=== PATIENT | female | born 1930 | race Caucasian/White ===

== ENCOUNTER 2017-10-11 18:52 | Inpatient (IN) | payer MEDICAID, MEDICARE ==
[~2017-10-11] VITALS: Ht 167.6 cm; Wt 45.4 kg
[2017-10-11 18:52] VITALS: BP 195/84
[2017-10-11 19:06] VITALS: BP 176/77
[2017-10-11] MEDS ORDERED: Ketorolac 30mg Inj IV ONE ×2 (19:15→21:45)
--- NOTE | 2017-10-11 19:27 | Emergency Room Report ---
History of Present Illness General Chief Complaint: Abdominal Pain Source: Patient, Family Member (AXEL MOORE M.D.) Present Illness HPI 87YOF Running by and the lens with 2 days of epigastric pain, centered in the epigastric, right upper quadrant and radiating to back. No associated nausea, vomiting, diarrhea or fevers or chills.. Daughter states patient had gallbladder removal previously and also "stones were removed through her mouth" by [facility] physician Denies constipation, urinary complaints (AXEL MOORE M.D.) Allergies: Coded Allergies: HYDROMORPHONE (Unverified Allergy, Unknown, vomitting, 10/11/17) LEVOFLOXACIN (Unverified Allergy, Unknown, Rash, 10/11/17) MEPERIDINE (Unverified Allergy, Unknown, nausea, 10/11/17) MORPHINE (Unverified Allergy, Unknown, nausea rash, 10/11/17) ACETAMINOPHEN (Verified Adverse Reaction, Intermediate, 10/14/17) abdominal irratation HYDROCODONE (Verified Adverse Reaction, Intermediate, 10/14/17) abdominal irratation Patient History Past Surgical History: nereyda Pertinent Family History: none Social History: Denies: smoking, alcohol use, drug use Now: No Immunizations: UTD Reviewed Nursing Documentation: PMH: Agreed, PSxH: Agreed (AXEL MOORE M.D.) Nursing Documentation-PMH Hx Hypertension: Yes Hx Seizures: Yes (AXEL MOORE M.D.) Review of Systems All Other Systems: negative except mentioned in HPI (AXEL MOORE M.D.) Physical Exam Vital Signs Date Time Temp Pulse Resp B/P (MAP) Pulse Ox O2 Delivery O2 Flow Rate FiO2 10/11/17 18:43 98.0 83 18 195/84 98 Room Air 98.1 Sp02 EP Interpretation: reviewed, normal General Appearance: normal inspection, well appearing, no apparent distress, alert, GCS 15, non-toxic Head: normocephalic, atraumatic Eyes: bilateral eye PERRL, bilateral eye EOMI ENT: normal ENT inspection, hearing grossly normal, normal pharynx, no angioedema, normal voice, TMs + canals normal, uvula midline, moist mucus membranes Neck: normal inspection, full range of motion, supple, thyroid normal, no meningismus, no bony tend Respiratory: normal inspection, lungs clear, normal breath sounds, no rhonchi, no respiratory distress, no retraction, no accessory muscle use, no wheezing, speaking full sentences Cardiovascular #1: regular rate, rhythm, no edema, no JVD, normal capillary refill Gastrointestinal: normal inspection, normal bowel sounds, soft, no mass, no peritonitis, non-distended, no guarding, no hernia, no pulsatile mass, other - mild ttp ruq. 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, motor strength/tone normal, cerebellar normal, normal gait, speech normal Psychiatric: normal inspection, judgement/insight normal, mood/affect normal, no suicidal/homicidal ideation, no delusions Skin: normal inspection, normal color, no rash Lymphatic: normal inspection, no adenopathy (AXEL MOORE M.D.) Medical Decision Making Diagnostic Impression: Primary Impression: Abdominal pain Qualified Codes: R10.13 - Epigastric pain Additional Impressions: Intractable abdominal pain Common bile duct dilatation S/P cholecystectomy ER Course 87YOF with abd pain LFTs, bili, ALkPhos normal CT shows CBD 13mm, no stone. S/p nereyda No other acute findings on CT, labs, urine On repeat exam after IV morphine, still c/o abd pain and ttp to epigastric/RUQ 13mm could be normal variant in her age. Unlikely to have obstruction with normal labs Patient's daughter requesting admit for intractable pain - states "I cant take her home like this." I was discussing [id number] dilation with Dr Oneil who agreed to followup with patient if she would be admitted Signout out to Dr Condon to followup admission endorsement at 10pm (AXEL MOORE M.D.) ER Course I received signout from 87-year-old female with epigastric pain. CAT scan showing no acute abnormality except for CBD dilation, could be normal in the setting of patient's age and history of cholecystectomy. Patient's labs are normal, LFTs are normal Vital signs stable appears nontoxic at bedside, currently her pain is controlled Patient will be admitted to [facility] Patient was signed out to Dr Waldron, who has accepted patient for admission. (Cassidy Condon M.D.) EKG Diagnostic Results Rate: normal Rhythm: NSR ST Segments: no acute changes ASA given to the pt in ED: No (AXEL MOORE M.D.) Rhythm Strip Diag. Results EP Interpretation: yes Rate: 64 Rhythm: NSR, no PVC's, no ectopy (AXEL MOORE M.D.) Last Vital Signs Date Time Temp Pulse Resp B/P (MAP) Pulse Ox O2 Delivery O2 Flow Rate FiO2 10/11/17 19:06 97.0 61 25 176/77 100 Room Air 97.0 Status: improved (AXEL MOORE M.D.) Disposition: ADMITTED INPATIENT Condition: Serious AXEL MOORE M.D. Oct 11, 2017 19:27 Cassidy Condon M.D. Oct 11, 2017 22:00
[2017-10-11 19:43] LABS: BASOPHILS % (AUTO) 1.6 % (0.0-2.0); EOSINOPHILS % (AUTO) 1.8 % (0.0-3.0); HEMATOCRIT 38.5 % (37.0-47.0); LYMPHOCYTES % (AUTO) 26.1 % (20.0-45.0); MEAN CORPUSCULAR VOLUME 75 FL (80-99); MONOCYTES % (AUTO) 7.8 % (1.0-10.0); NEUTROPHILS % (AUTO) 62.7 % (45.0-75.0); PLATELET COUNT 300 K/UL (150-450); RED BLOOD COUNT 5.15 M/UL (4.20-5.40); RED CELL DISTRIBUTION WIDTH 14.8 % (11.6-14.8)
[2017-10-11 19:56] LABS: ANION GAP 9 mmol/L (5-15); BLOOD UREA NITROGEN 22 mg/dL (7-18); CALCIUM 10.4 MG/DL (8.5-10.1); CARBON DIOXIDE 29 MMOL/L (21-32); CHLORIDE 99 MMOL/L (98-107); SODIUM 137 MMOL/L (136-145)
[2017-10-11 20:00] LABS: ALANINE AMINOTRANSFERASE 20 U/L (12-78); ALBUMIN 4.1 G/DL (3.4-5.0); ALBUMIN/GLOBULIN RATIO 0.9 (1.0-2.7); ALKALINE PHOSPHATASE 115 U/L (46-116); ASPARTATE AMINO TRANSFERASE 18 U/L (15-37); BILIRUBIN,TOTAL 0.2 MG/DL (0.2-1.0)
[2017-10-11 20:14] LABS: APPEARANCE,URINE CLEAR; BILIRUBIN, URINE NEGATIVE (NEGATIVE); COLOR,URINE PALE YELLOW; GLUCOSE, URINE (UA) NEGATIVE (NEGATIVE); KETONES,URINE NEGATIVE (NEGATIVE); LEUKOCYTE ESTERASE ,URINE 1+ (NEGATIVE); NITRITE,URINE NEGATIVE (NEGATIVE); PH,URINE 7 (4.5-8.0); PROTEIN,URINE NEGATIVE (NEGATIVE); UROBILINOGEN,URINE NORMAL MG/DL (0.0-1.0)
[2017-10-11] MEDS ORDERED: CREON DR 12,001 EACH PO (21:57)
[2017-10-11] MEDS ORDERED: ZOLPIDEM TARTRAT5 MG ORAL (21:57)
[2017-10-11] MEDS ORDERED: CAPTOPRIL25 M1 PO (21:57)
[2017-10-11] MEDS ORDERED: DIOVAN80 MG ORAL (21:57)
[2017-10-11] MEDS ORDERED: BUTALBITAL25 GM MC (21:57)
[2017-10-11 21:59] VITALS: BP 171/86
[2017-10-11] MEDS ORDERED: Nitroglycerin Subl 0.4mg tab SL PRN (22:15)
[2017-10-11] MEDS ORDERED: Miralax 17gm pkt ORAL PRN (22:15)
[2017-10-11] MEDS ORDERED: LORazepam Inj 2mg/ml 1ml IV PRN (22:15)
[2017-10-11] MEDS ORDERED: Mylanta II UD 30ml ORAL PRN (22:15)
[2017-10-11] MEDS: D5 1/2NS 1,000 ML IV SCH (22:46)
[2017-10-11 23:40] VITALS: BP 177/82
[2017-10-12] VITALS: BP 194/82
[2017-10-12 04:00] VITALS: BP 142/90
[2017-10-12] MEDS: Captopril 25mg tab ORAL SCH ×3 (06:05→22:15)
[2017-10-12] MEDS ORDERED: Ketorolac 30mg Inj IV PRN (07:00)
[2017-10-12 07:29] LABS: BASOPHILS % (AUTO) 1.3 % (0.0-2.0); HEMATOCRIT 33.9 % (37.0-47.0); HEMOGLOBIN 10.8 G/DL (12.0-16.0); LYMPHOCYTES % (AUTO) 19.5 % (20.0-45.0); MEAN CORPUSCULAR VOLUME 75 FL (80-99); NEUTROPHILS % (AUTO) 64.2 % (45.0-75.0); PLATELET COUNT 276 K/UL (150-450); RED BLOOD COUNT 4.53 M/UL (4.20-5.40); RED CELL DISTRIBUTION WIDTH 14.4 % (11.6-14.8); WHITE BLOOD COUNT 5.1 K/UL (4.8-10.8)
[2017-10-12 07:52] LABS: ALANINE AMINOTRANSFERASE 11 U/L (12-78); ALBUMIN 3.2 G/DL (3.4-5.0); ALBUMIN/GLOBULIN RATIO 0.8 (1.0-2.7); ALKALINE PHOSPHATASE 88 U/L (46-116); AMYLASE 145 U/L (25-115); ANION GAP 9 mmol/L (5-15); ASPARTATE AMINO TRANSFERASE 20 U/L (15-37); BILIRUBIN,TOTAL 0.2 MG/DL (0.2-1.0); BLOOD UREA NITROGEN 17 mg/dL (7-18); CALCIUM 9.4 MG/DL (8.5-10.1); CARBON DIOXIDE 26 MMOL/L (21-32); CHLORIDE 103 MMOL/L (98-107); CREATININE 0.9 MG/DL (0.55-1.30); POTASSIUM 3.8 MMOL/L (3.5-5.1); SODIUM 137 MMOL/L (136-145)
[2017-10-12 08:15] VITALS: BP 147/69
[2017-10-12] MEDS: Ketorolac 30mg Inj IV PRN (08:42)
--- NOTE | 2017-10-12 10:10 | Diagnostic Imaging Report ---
Clinical Indication: Abdominal pain Technique: No oral contrast utilized, per emergency room physician request IV administration nonionic contrast. Venous phase spiral acquisition obtained through the abdomen and pelvis. Multiplanar reconstructions were generated. Total dose length product 513.75 mGycm. CTDIvol(s) 11.19 mGy. Dose reduction achieved using automated exposure control Comparison: none Findings: There are multiple fat-containing ventral hernias and a small umbilical hernia. There is colonic diverticulosis. No evidence of diverticulitis. Appendix is normal. No small bowel distention. The distal esophagus, stomach, duodenum are unremarkable. There is a small duodenal diverticulum. No free or loculated intraperitoneal air or fluid is demonstrated. The gallbladder is surgically absent. The extrahepatic and central intrahepatic ducts are dilated, and no downstream obstructing lesion is demonstrated. The liver, pancreas, spleen, adrenals, kidneys are unremarkable. No pelvic mass or adenopathy. No retroperitoneal or mesenteric mass or adenopathy. There is focal ectasia of the distal right common femoral artery, which measures 15 mm in diameter, with some mural thrombus. The included lung bases demonstrate posterior dependent atelectatic changes. The bones demonstrate minimal degenerative spondylosis changes. Impression: No acute abnormality Surgically absent gallbladder. Extrahepatic and central intrahepatic biliary ductal dilatation, probably related to prior cholecystectomy and senescent changes Colonic diverticulosis. 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 The CT scanner at [facility] is accredited by the [employer] and the scans are performed using protocols designed to limit radiation exposure to as low as reasonably achievable to attain images of sufficient resolution adequate for diagnostic evaluation.
[2017-10-12] MEDS: Pantoprazole Inj IV SCH (10:17)
[2017-10-12] MEDS: Heparin 5000 units/ml inj SUBQ SCH ×2 (10:19→21:11)
--- NOTE | 2017-10-12 10:37 | Diagnostic Imaging Report ---
Indication: Abdominal pain Technique: Howard-scale and duplex images of the upper abdomen were obtained Comparison: Reference made to CT abdomen and pelvis 10/11/2017 Findings: Gallbladder is surgically absent. Common bile duct measures the mm in diameter. No intrahepatic biliary ductal dilatation. Liver demonstrates normal echogenicity, no focal abnormality. Portal vein and hepatic veins are patent. Pancreas is unremarkable. Spleen is unremarkable. Left kidney measures 8.2 cm in length. Right kidney measures 9.4 cm length. Both kidneys demonstrate normal echogenicity. There is no hydronephrosis. There is a 9 mm cyst in the lower pole of the right kidney. Tiny echogenic focus is seen in the parenchyma of the left kidney . Non-aneurysmal abdominal aorta . Impression: Surgically absent gallbladder Ectatic extrahepatic bile ducts, likely related to age and postcholecystectomy state. Correlate with liver function tests Incidental finding and lower pole renal cyst Echogenic focus in the left renal parenchyma, artifact versus calcification versus tiny angiomyolipoma
--- NOTE | 2017-10-12 11:20 | GI Initial Consult Note ---
Tavarez,Odalys Davi N.P. 10/12/17 1120: History of Present Illness General Date patient seen: Oct 12, 2017 Time patient seen: 11:09 Reason for Hospitalization: Abdominal Pain Referring physician: FUENTES FRANCISCO Reason for Consultation: ABDOMINAL PAIN Present Illness HPI 87YOF Running by and the lens with 2 days of epigastric pain, centered in the epigastric, right upper quadrant and radiating to back. No associated nausea, vomiting, diarrhea or fevers or chills.. Daughter states patient had gallbladder removal previously and also "stones were removed through her mouth" by [facility] physician Denies constipation, urinary complaints GI consulted for abdominal pain. Pt seen on floor, awake A&Ox4 NAD with family members by bedside. At this time, denied any abdominal pain >> soft, nontender. The patients pain is directed more at right flank / lumbar area. Denies any N/V/D. In terms of GI, the patient has history of cholecystectomy with ?multiple ERCP's at [facility] as stated by the patients granddaughter. CT AP shows CBD 15mm dilation, however, the family does not wish do have any endoscopic procedures performed at this this time. She presents today with anemia and elevated amylase. Home Meds Reported Medications Butalbital (BUTALBITAL) 25 Gm Powder, 25 GM MC, GM 10/11/17 Captopril (CAPTOPRIL) 25 Mg Tablet, 25 MG PO, TAB 10/11/17 Zolpidem Tartrate* (ZOLPIDEM TARTRATE*) 5 Mg Tablet, 5 MG ORAL BEDTIME Y for Insomnia, TAB 0 Refills 10/11/17 Valsartan (DIOVAN) 80 Mg Tab, 160 MG ORAL DAILY, TAB 10/11/17 Lipase/Protease/Amylase (VA MARTINEZ 12,000 UNITS CAPSULE) 1 Each Capsule.dr, 1 EACH PO, CAP 10/11/17 Med list reviewed/reconciled: Yes Allergies: Coded Allergies: HYDROMORPHONE (Unverified Allergy, Unknown, vomitting, 10/11/17) LEVOFLOXACIN (Unverified Allergy, Unknown, Rash, 10/11/17) MEPERIDINE (Unverified Allergy, Unknown, nausea, 10/11/17) MORPHINE (Unverified Allergy, Unknown, nausea rash, 10/11/17) Patient History Limited by: age History Provided By: Patient, Family Member, Medical Record PMH Narrative Past Surgical History: nereyda Pertinent Family History: none Social History: Denies: smoking, alcohol use, drug use Now: No Immunizations: UTD Reviewed Nursing Documentation: PMH: Agreed, PSxH: Agreed Hx Hypertension: Yes Hx Seizures: Yes Social History: Denies: smoking, alcohol use, drug use, other Review of Systems All Other Systems: negative except mentioned in HPI Physical Exam Vital Signs Date Time Temp Pulse Resp B/P (MAP) Pulse Ox O2 Delivery O2 Flow Rate FiO2 10/11/17 18:43 98.0 83 18 195/84 98 Room Air 98.1 Sp02 EP Interpretation: reviewed Labs Laboratory Tests Test 10/11/17 19:33 10/12/17 06:27 White Blood Count 6.0 K/UL (4.8-10.8) 5.1 K/UL (4.8-10.8) Red Blood Count 5.15 M/UL (4.20-5.40) 4.53 M/UL (4.20-5.40) Hemoglobin 12.0 G/DL (12.0-16.0) 10.8 G/DL (12.0-16.0) L Hematocrit 38.5 % (37.0-47.0) 33.9 % (37.0-47.0) L Mean Corpuscular Volume 75 FL (80-99) L 75 FL (80-99) L Mean Corpuscular Hemoglobin 23.3 PG (27.0-31.0) L 23.9 PG (27.0-31.0) L Mean Corpuscular Hemoglobin Concent 31.2 G/DL (32.0-36.0) L 31.9 G/DL (32.0-36.0) L Red Cell Distribution Width 14.8 % (11.6-14.8) 14.4 % (11.6-14.8) Platelet Count 300 K/UL (150-450) 276 K/UL (150-450) Mean Platelet Volume 6.0 FL (6.5-10.1) L 5.9 FL (6.5-10.1) L Neutrophils (%) (Auto) 62.7 % (45.0-75.0) 64.2 % (45.0-75.0) Lymphocytes (%) (Auto) 26.1 % (20.0-45.0) 19.5 % (20.0-45.0) L Monocytes (%) (Auto) 7.8 % (1.0-10.0) 9.0 % (1.0-10.0) Eosinophils (%) (Auto) 1.8 % (0.0-3.0) 6.0 % (0.0-3.0) H Basophils (%) (Auto) 1.6 % (0.0-2.0) 1.3 % (0.0-2.0) Urine Color Pale yellow Urine Appearance Clear Urine pH 7 (4.5-8.0) Urine Specific [place] 1.010 (1.005-1.035) Urine Protein Negative (NEGATIVE) Urine Glucose (UA) Negative (NEGATIVE) Urine Ketones Negative (NEGATIVE) Urine Occult Blood 4+ (NEGATIVE) H Urine Nitrite Negative (NEGATIVE) Urine Bilirubin Negative (NEGATIVE) Urine Urobilinogen Normal MG/DL (0.0-1.0) Urine Leukocyte Esterase 1+ (NEGATIVE) H Urine RBC 5-10 /HPF (0 - 2) H Urine WBC 2-4 /HPF (0 - 2) Urine Squamous Epithelial Cells Few /LPF (NONE/OCC) Urine Bacteria Few /HPF (NONE) Sodium Level 137 MMOL/L (136-145) 137 MMOL/L (136-145) Potassium Level 4.0 MMOL/L (3.5-5.1) 3.8 MMOL/L (3.5-5.1) Chloride Level 99 MMOL/L (98-107) 103 MMOL/L (98-107) Carbon Dioxide Level 29 MMOL/L (21-32) 26 MMOL/L (21-32) Anion Gap 9 mmol/L (5-15) 9 mmol/L (5-15) Blood Urea Nitrogen 22 mg/dL (7-18) H 17 mg/dL (7-18) Creatinine 1.0 MG/DL (0.55-1.30) 0.9 MG/DL (0.55-1.30) Estimat Glomerular Filtration Rate mL/min (>60) mL/min (>60) Glucose Level 98 MG/DL (74-106) 91 MG/DL (74-106) Calcium Level 10.4 MG/DL (8.5-10.1) H 9.4 MG/DL (8.5-10.1) Total Bilirubin 0.2 MG/DL (0.2-1.0) 0.2 MG/DL (0.2-1.0) Aspartate Amino Transf (AST/SGOT) 18 U/L (15-37) 20 U/L (15-37) Alanine Aminotransferase (ALT/SGPT) 20 U/L (12-78) 11 U/L (12-78) L Alkaline Phosphatase 115 U/L (46-116) 88 U/L (46-116) Total Protein 8.8 G/DL (6.4-8.2) H 7.0 G/DL (6.4-8.2) Albumin 4.1 G/DL (3.4-5.0) 3.2 G/DL (3.4-5.0) L Globulin 4.7 g/dL 3.8 g/dL Albumin/Globulin Ratio 0.9 (1.0-2.7) L 0.8 (1.0-2.7) L Lipase 373 U/L (73-393) 245 U/L (73-393) Activated Partial Thromboplast Time 26 SEC (23-33) Amylase Level 145 U/L (25-115) H General Appearance: well appearing, no apparent distress, alert, thin Head: normocephalic EENT: normal ENT inspection Neck: supple Respiratory: normal breath sounds, no respiratory distress Cardiovascular: normal rate Gastrointestinal: normal inspection, non tender, soft Neurologic: normal inspection, alert, responsive Psychiatric: normal inspection, judgement/insight normal Skin: normal inspection, normal color, no rash, warm/dry, palpation normal, well hydrated Lymphatic: normal inspection, no adenopathy, axilla node tender (R) Current Medications Current Medications Medications (Trade) Dose Ordered Sig/Matt Route PRN Reason Start Time Stop Time Status Last Admin Dose Admin Acetaminophen (Tylenol) 650 mg Q4H PRN ORAL fever 10/11/17 22:15 11/10/17 22:14 Al Hydroxide/Mg Hydroxide (Mylanta II) 30 ml Q6H PRN ORAL dyspepsia 10/11/17 22:15 11/10/17 22:14 Captopril (Capoten) 25 mg EVERY 8 HOURS ORAL 10/12/17 06:00 11/11/17 05:59 10/12/17 06:05 Clonidine HCl (Catapres Tab) 0.1 mg Q6H PRN ORAL For High Blood Pressure>160 10/12/17 07:00 11/11/17 06:59 Dextrose (Dextrose 50%) STAT PRN IV Hypoglycemia 10/11/17 22:15 11/10/17 22:14 Dextrose/Sodium Chloride 1,000 ml @ 75 mls/hr [id number] IV 10/11/17 22:09 11/10/17 22:08 10/11/17 22:46 Diphenhydramine HCl (Benadryl) 25 mg Q6H PRN ORAL Itching/Pruritis 10/11/17 22:15 11/10/17 22:14 Heparin Sodium (Porcine) (Heparin 5000 units/ml) 5,000 units EVERY 12 HOURS SUBQ 10/12/17 09:00 11/11/17 08:59 10/12/17 10:19 Ketorolac Tromethamine (Toradol 30mg) 15 mg Q6H PRN IV For Pain 10/12/17 13:00 10/17/17 12:59 10/12/17 08:42 Lorazepam (Ativan 2mg/ml 1ml) 1 mg EVERY 4 HOURS PRN IV agitation 10/11/17 22:15 10/18/17 22:14 Nitroglycerin (Ntg) 0.4 mg Q5M X 3 DOSES PRN SL Prn Chest Pain 10/11/17 22:15 11/10/17 22:14 Ondansetron HCl (Zofran) 4 mg Q6H PRN IVP Nausea & Vomiting 10/11/17 22:15 11/10/17 22:14 Pantoprazole (Protonix) 40 mg DAILY IV 10/12/17 09:00 11/11/17 08:59 10/12/17 10:17 Polyethylene Glycol (Miralax) 17 gm HSPRN PRN ORAL Constipation 10/11/17 22:15 11/10/17 22:14 Promethazine HCl (Phenergan) 25 mg EVERY 8 HOURS PRN IV refractory nausea 10/11/17 22:15 11/10/17 22:14 Temazepam (Restoril) 15 mg HSPRN PRN ORAL Insomnia 10/11/17 22:15 10/18/17 22:14 GI: Plan Problems: (1) Right flank pain (2) Back pain (3) Abdominal pain Plan Abdominal U/S reviewed >> - Surgically absent gallbladder - Ectatic extrahepatic bile ducts, likely related to age and postcholecystectomy state. - Incidental finding and lower pole renal cyst CT AP reviewed >> - No acute abnormality - Extrahepatic and central intrahepatic biliary ductal dilatation, probably related to prior cholecystectomy and senescent changes - Colonic diverticulosis. 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 Jauregui. Thank you for this patient referral, we will follow. TAL JAUREGUI 10/12/17 9945: History of Present Illness General Reason for Hospitalization: Abdominal Pain Present Illness Home Meds Reported Medications Butalbital (BUTALBITAL) 25 Gm Powder, 25 GM MC, GM 10/11/17 Captopril (CAPTOPRIL) 25 Mg Tablet, 25 MG PO, TAB 10/11/17 Zolpidem Tartrate* (ZOLPIDEM TARTRATE*) 5 Mg Tablet, 5 MG ORAL BEDTIME Y for Insomnia, TAB 0 Refills 10/11/17 Valsartan (DIOVAN) 80 Mg Tab, 160 MG ORAL DAILY, TAB 10/11/17 Lipase/Protease/Amylase (VA MARTINEZ 12,000 UNITS CAPSULE) 1 Each Capsule., 1 EACH PO, CAP 10/11/17 Allergies: Coded Allergies: HYDROMORPHONE (Unverified Allergy, Unknown, vomitting, 10/11/17) LEVOFLOXACIN (Unverified Allergy, Unknown, Rash, 10/11/17) MEPERIDINE (Unverified Allergy, Unknown, nausea, 10/11/17) MORPHINE (Unverified Allergy, Unknown, nausea rash, 10/11/17) GI: Plan Plan The patient was seen and examined at bedside and all new and available data was reviewed in the patients chart. I agree with the above findings, impression and plan. (Patient seen earlier today. Signature stamp does not reflect patient encounter time.). - MD [facility] Davi Barbour Oct 12, 2017 11:20 TAL JAUREGUI Oct 12, 2017 15:55
[2017-10-12 12:20] VITALS: BP 128/79
--- NOTE | 2017-10-12 13:22 | Consultation ---
History of Present Illness General Date patient seen: Oct 12, 2017 Chief Complaint: Abdominal Pain Referring physician: FUENTES FRANCISCO Reason for Consultation: ABDOMINAL PAIN Present Illness HPI 87 year old female with multiple medical comorbidities as noted below presented with persistent intractable abdominal pain/back pain. As per patient and her family members she has been experiencing pain for some time now. past few days worsening. on admission epigastric but today states it is mainly in her back and somewhat RUQ. no n/v/f/c. has had history of back and abdominal pain for some time now. also has history of biliary tract issues stating that she had cholecystectomy, multiple prior CBD stones requiring ERCP and stone removal, and subsequent pancreatitis as well. CT on admission noted a 13mm large CBD. lft's okay. no biliary obstruction noted on CT. Allergies: Coded Allergies: HYDROMORPHONE (Unverified Allergy, Unknown, vomitting, 10/11/17) LEVOFLOXACIN (Unverified Allergy, Unknown, Rash, 10/11/17) MEPERIDINE (Unverified Allergy, Unknown, nausea, 10/11/17) MORPHINE (Unverified Allergy, Unknown, nausea rash, 10/11/17) Medication History Scheduled Valsartan (Diovan), 160 MG ORAL DAILY, (Reported) Scheduled PRN Zolpidem Tartrate* (Zolpidem Tartrate*), 5 MG ORAL BEDTIME PRN for Insomnia, ( Reported) Miscellaneous Medications Butalbital (Butalbital), 25 GM MC, (Reported) Captopril (Captopril), 25 MG PO, (Reported) Lipase/Protease/Amylase (Creon Dr 12,000 Units Capsule), 1 EACH PO, (Reported) Patient History History Provided By: Patient, Family Member, Medical Record Healthcare decision maker Gabriela Butt(Daughter) [phone] Resuscitation status Full Code Advanced Directive on File Past Medical/Surgical History Past Medical/Surgical History: (1) Back pain (2) Abdominal pain (3) Right flank pain Review of Systems All Other Systems: negative except mentioned in HPI Physical Exam General Appearance: no apparent distress, alert Lines, tubes and drains: peripheral HEENT: mucous membranes moist, PERRL Neck: normal inspection Respiratory/Chest: lungs clear, normal breath sounds, no respiratory distress, no accessory muscle use Cardiovascular/Chest: normal peripheral pulses Abdomen: non tender, soft, no organomegaly, no mass Extremities: normal inspection Skin Exam: normal pigmentation Neurologic: alert, responsive Physical Exam Narrative tender on right side lower ribs. costochondritis Last 24 Hour Vital Signs Date Time Temp Pulse Resp B/P (MAP) Pulse Ox O2 Delivery O2 Flow Rate FiO2 10/12/17 08:15 96.6 53 18 147/69 98 Room Air 96.6 10/12/17 06:05 142/90 10/12/17 04:00 98.3 66 20 142/90 97 Room Air 98.3 10/12/17 00:00 97.3 52 22 194/82 100 97.3 10/11/17 23:41 208.4 58 24 177/82 100 Room Air 208.4 10/11/17 23:40 208.4 58 24 177/82 100 Room Air 208.4 10/11/17 22:41 98.0 10/11/17 21:59 98.0 74 24 171/86 100 Room Air 98.0 10/11/17 21:15 97.0 10/11/17 19:52 97.0 10/11/17 19:06 97.0 61 25 176/77 100 Room Air 97.0 10/11/17 18:52 98.1 85 18 195/84 98 Room Air 98.1 10/11/17 18:43 98.0 83 18 195/84 98 Room Air 98.1 Intake and Output 10/11/17 10/12/17 19:00 07:00 Intake Total 600 ml Balance 600 ml Intake Oral 0 ml IV Total 600 ml # Voids 1 Laboratory Tests Test 10/11/17 19:33 10/12/17 06:27 White Blood Count 6.0 K/UL (4.8-10.8) 5.1 K/UL (4.8-10.8) Red Blood Count 5.15 M/UL (4.20-5.40) 4.53 M/UL (4.20-5.40) Hemoglobin 12.0 G/DL (12.0-16.0) 10.8 G/DL (12.0-16.0) L Hematocrit 38.5 % (37.0-47.0) 33.9 % (37.0-47.0) L Mean Corpuscular Volume 75 FL (80-99) L 75 FL (80-99) L Mean Corpuscular Hemoglobin 23.3 PG (27.0-31.0) L 23.9 PG (27.0-31.0) L Mean Corpuscular Hemoglobin Concent 31.2 G/DL (32.0-36.0) L 31.9 G/DL (32.0-36.0) L Red Cell Distribution Width 14.8 % (11.6-14.8) 14.4 % (11.6-14.8) Platelet Count 300 K/UL (150-450) 276 K/UL (150-450) Mean Platelet Volume 6.0 FL (6.5-10.1) L 5.9 FL (6.5-10.1) L Neutrophils (%) (Auto) 62.7 % (45.0-75.0) 64.2 % (45.0-75.0) Lymphocytes (%) (Auto) 26.1 % (20.0-45.0) 19.5 % (20.0-45.0) L Monocytes (%) (Auto) 7.8 % (1.0-10.0) 9.0 % (1.0-10.0) Eosinophils (%) (Auto) 1.8 % (0.0-3.0) 6.0 % (0.0-3.0) H Basophils (%) (Auto) 1.6 % (0.0-2.0) 1.3 % (0.0-2.0) Urine Color Pale yellow Urine Appearance Clear Urine pH 7 (4.5-8.0) Urine Specific [place] 1.010 (1.005-1.035) Urine Protein Negative (NEGATIVE) Urine Glucose (UA) Negative (NEGATIVE) Urine Ketones Negative (NEGATIVE) Urine Occult Blood 4+ (NEGATIVE) H Urine Nitrite Negative (NEGATIVE) Urine Bilirubin Negative (NEGATIVE) Urine Urobilinogen Normal MG/DL (0.0-1.0) Urine Leukocyte Esterase 1+ (NEGATIVE) H Urine RBC 5-10 /HPF (0 - 2) H Urine WBC 2-4 /HPF (0 - 2) Urine Squamous Epithelial Cells Few /LPF (NONE/OCC) Urine Bacteria Few /HPF (NONE) Sodium Level 137 MMOL/L (136-145) 137 MMOL/L (136-145) Potassium Level 4.0 MMOL/L (3.5-5.1) 3.8 MMOL/L (3.5-5.1) Chloride Level 99 MMOL/L (98-107) 103 MMOL/L (98-107) Carbon Dioxide Level 29 MMOL/L (21-32) 26 MMOL/L (21-32) Anion Gap 9 mmol/L (5-15) 9 mmol/L (5-15) Blood Urea Nitrogen 22 mg/dL (7-18) H 17 mg/dL (7-18) Creatinine 1.0 MG/DL (0.55-1.30) 0.9 MG/DL (0.55-1.30) Estimat Glomerular Filtration Rate mL/min (>60) mL/min (>60) Glucose Level 98 MG/DL (74-106) 91 MG/DL (74-106) Calcium Level 10.4 MG/DL (8.5-10.1) H 9.4 MG/DL (8.5-10.1) Total Bilirubin 0.2 MG/DL (0.2-1.0) 0.2 MG/DL (0.2-1.0) Aspartate Amino Transf (AST/SGOT) 18 U/L (15-37) 20 U/L (15-37) Alanine Aminotransferase (ALT/SGPT) 20 U/L (12-78) 11 U/L (12-78) L Alkaline Phosphatase 115 U/L (46-116) 88 U/L (46-116) Total Protein 8.8 G/DL (6.4-8.2) H 7.0 G/DL (6.4-8.2) Albumin 4.1 G/DL (3.4-5.0) 3.2 G/DL (3.4-5.0) L Globulin 4.7 g/dL 3.8 g/dL Albumin/Globulin Ratio 0.9 (1.0-2.7) L 0.8 (1.0-2.7) L Lipase 373 U/L (73-393) 245 U/L (73-393) Activated Partial Thromboplast Time 26 SEC (23-33) Amylase Level 145 U/L (25-115) H Height (Feet): 5 Height (Inches): 6.00 Weight (Pounds): 100 Medications Current Medications Medications (Trade) Dose Ordered Sig/Matt Route PRN Reason Start Time Stop Time Status Last Admin Dose Admin Acetaminophen (Tylenol) 650 mg Q4H PRN ORAL fever 10/11/17 22:15 11/10/17 22:14 Al Hydroxide/Mg Hydroxide (Mylanta II) 30 ml Q6H PRN ORAL dyspepsia 10/11/17 22:15 11/10/17 22:14 Captopril (Capoten) 25 mg EVERY 8 HOURS ORAL 10/12/17 06:00 11/11/17 05:59 10/12/17 06:05 Clonidine HCl (Catapres Tab) 0.1 mg Q6H PRN ORAL For High Blood Pressure>160 10/12/17 07:00 11/11/17 06:59 Dextrose (Dextrose 50%) STAT PRN IV Hypoglycemia 10/11/17 22:15 11/10/17 22:14 Dextrose/Sodium Chloride 1,000 ml @ 75 mls/hr [id number] IV 10/11/17 22:09 11/10/17 22:08 10/11/17 22:46 Diphenhydramine HCl (Benadryl) 25 mg Q6H PRN ORAL Itching/Pruritis 10/11/17 22:15 11/10/17 22:14 Heparin Sodium (Porcine) (Heparin 5000 units/ml) 5,000 units EVERY 12 HOURS SUBQ 10/12/17 09:00 11/11/17 08:59 10/12/17 10:19 Ketorolac Tromethamine (Toradol 30mg) 15 mg Q6H PRN IV For Pain 10/12/17 13:00 10/17/17 12:59 10/12/17 08:42 Lorazepam (Ativan 2mg/ml 1ml) 1 mg EVERY 4 HOURS PRN IV agitation 10/11/17 22:15 10/18/17 22:14 Nitroglycerin (Ntg) 0.4 mg Q5M X 3 DOSES PRN SL Prn Chest Pain 10/11/17 22:15 11/10/17 22:14 Ondansetron HCl (Zofran) 4 mg Q6H PRN IVP Nausea & Vomiting 10/11/17 22:15 11/10/17 22:14 Pantoprazole (Protonix) 40 mg DAILY IV 10/12/17 09:00 11/11/17 08:59 10/12/17 10:17 Polyethylene Glycol (Miralax) 17 gm HSPRN PRN ORAL Constipation 10/11/17 22:15 11/10/17 22:14 Promethazine HCl (Phenergan) 25 mg EVERY 8 HOURS PRN IV refractory nausea 10/11/17 22:15 11/10/17 22:14 Temazepam (Restoril) 15 mg HSPRN PRN ORAL Insomnia 10/11/17 22:15 10/18/17 22:14 Assessment/Plan Problem List: (1) Abdominal pain Assessment & Plan: abdominal pain. back pain. RUQ pain. epigastric pain. not consistent and changes. CT with dilated biliary tract. history of biliary stones requiring ERCP? on exam can illicit pain on right lower ribs anteriorly resembling costochondritis -given history would recommend MRCP to ensure no biliary stricture or stones that are being missed on CT/US -pain management -trend labs. will follow with recs. thank you for this consultation. ICD Codes: R10.9 - Unspecified abdominal pain SNOMED: 48786810 Qualifiers: Qualified Codes: R10.13 - Epigastric pain Status: stable AsifHugh bartlett Oct 12, 2017 13:22
[2017-10-12] MEDS: D5 1/2NS 1,000 ML IV SCH (14:04)
[2017-10-12 16:04] VITALS: BP 152/75
--- NOTE | 2017-10-12 16:11 | History and Physical ---
History of Present Illness General Date patient seen: Oct 12, 2017 Reason for Hospitalization: Abdominal Pain Present Illness HPI 87 year old female with hx of cholecystectomy and gallstone pancreatitis last year presented with with 2 days of epigastric pain, centered in the epigastric , right upper quadrant and radiating to back. No associated nausea, vomiting, diarrhea or fevers or chills. Denies constipation, diarrhea etc. Pt is admitted for intractable abdominal pain. Allergies: Coded Allergies: HYDROMORPHONE (Unverified Allergy, Unknown, vomitting, 10/11/17) LEVOFLOXACIN (Unverified Allergy, Unknown, Rash, 10/11/17) MEPERIDINE (Unverified Allergy, Unknown, nausea, 10/11/17) MORPHINE (Unverified Allergy, Unknown, nausea rash, 10/11/17) Medication History Scheduled Valsartan (Diovan), 160 MG ORAL DAILY, (Reported) Scheduled PRN Zolpidem Tartrate* (Zolpidem Tartrate*), 5 MG ORAL BEDTIME PRN for Insomnia, ( Reported) Miscellaneous Medications Butalbital (Butalbital), 25 GM MC, (Reported) Captopril (Captopril), 25 MG PO, (Reported) Lipase/Protease/Amylase (Creon Dr 12,000 Units Capsule), 1 EACH PO, (Reported) Patient History Healthcare decision maker Gabriela Butt(Daughter) [phone] Resuscitation status Full Code Advanced Directive on File Past Medical/Surgical History Past Medical/Surgical History: (1) History of cholecystectomy (2) Pancreatitis Review of Systems All Other Systems: negative except mentioned in HPI Physical Exam General Appearance: WD/WN, no apparent distress, lethargic Lines, tubes and drains: peripheral HEENT: normocephalic, anicteric Neck: non-tender, normal alignment, supple, normal inspection, abnormal alignment Respiratory/Chest: chest wall non-tender, lungs clear, no respiratory distress Cardiovascular/Chest: normal peripheral pulses, normal rate, regular rhythm Abdomen: normal bowel sounds, non tender, abnormal bowel sounds, hyperactive bowel sounds Genitourinary/Rectal: normal genital exam Extremities: normal range of motion, non-tender, normal inspection Skin Exam: normal pigmentation Neurologic: hot box spotter II-XII grossly normal Lymphatic: anterior cervical, posterior cervical (L) Last 24 Hour Vital Signs Date Time Temp Pulse Resp B/P (MAP) Pulse Ox O2 Delivery O2 Flow Rate FiO2 10/12/17 14:03 128/79 10/12/17 12:20 98.0 60 17 128/79 95 Room Air 98.0 10/12/17 08:15 96.6 53 18 147/69 98 Room Air 96.6 10/12/17 06:05 142/90 10/12/17 04:00 98.3 66 20 142/90 97 Room Air 98.3 10/12/17 00:00 97.3 52 22 194/82 100 97.3 10/11/17 23:41 208.4 58 24 177/82 100 Room Air 208.4 10/11/17 23:40 208.4 58 24 177/82 100 Room Air 208.4 10/11/17 22:41 98.0 10/11/17 21:59 98.0 74 24 171/86 100 Room Air 98.0 10/11/17 21:15 97.0 10/11/17 19:52 97.0 10/11/17 19:06 97.0 61 25 176/77 100 Room Air 97.0 10/11/17 18:52 98.1 85 18 195/84 98 Room Air 98.1 10/11/17 18:43 98.0 83 18 195/84 98 Room Air 98.1 Intake and Output 10/11/17 10/12/17 19:00 07:00 Intake Total 600 ml Balance 600 ml Intake Oral 0 ml IV Total 600 ml # Voids 1 Laboratory Tests Test 10/11/17 19:33 10/12/17 06:27 White Blood Count 6.0 K/UL (4.8-10.8) 5.1 K/UL (4.8-10.8) Red Blood Count 5.15 M/UL (4.20-5.40) 4.53 M/UL (4.20-5.40) Hemoglobin 12.0 G/DL (12.0-16.0) 10.8 G/DL (12.0-16.0) L Hematocrit 38.5 % (37.0-47.0) 33.9 % (37.0-47.0) L Mean Corpuscular Volume 75 FL (80-99) L 75 FL (80-99) L Mean Corpuscular Hemoglobin 23.3 PG (27.0-31.0) L 23.9 PG (27.0-31.0) L Mean Corpuscular Hemoglobin Concent 31.2 G/DL (32.0-36.0) L 31.9 G/DL (32.0-36.0) L Red Cell Distribution Width 14.8 % (11.6-14.8) 14.4 % (11.6-14.8) Platelet Count 300 K/UL (150-450) 276 K/UL (150-450) Mean Platelet Volume 6.0 FL (6.5-10.1) L 5.9 FL (6.5-10.1) L Neutrophils (%) (Auto) 62.7 % (45.0-75.0) 64.2 % (45.0-75.0) Lymphocytes (%) (Auto) 26.1 % (20.0-45.0) 19.5 % (20.0-45.0) L Monocytes (%) (Auto) 7.8 % (1.0-10.0) 9.0 % (1.0-10.0) Eosinophils (%) (Auto) 1.8 % (0.0-3.0) 6.0 % (0.0-3.0) H Basophils (%) (Auto) 1.6 % (0.0-2.0) 1.3 % (0.0-2.0) Urine Color Pale yellow Urine Appearance Clear Urine pH 7 (4.5-8.0) Urine Specific [place] 1.010 (1.005-1.035) Urine Protein Negative (NEGATIVE) Urine Glucose (UA) Negative (NEGATIVE) Urine Ketones Negative (NEGATIVE) Urine Occult Blood 4+ (NEGATIVE) H Urine Nitrite Negative (NEGATIVE) Urine Bilirubin Negative (NEGATIVE) Urine Urobilinogen Normal MG/DL (0.0-1.0) Urine Leukocyte Esterase 1+ (NEGATIVE) H Urine RBC 5-10 /HPF (0 - 2) H Urine WBC 2-4 /HPF (0 - 2) Urine Squamous Epithelial Cells Few /LPF (NONE/OCC) Urine Bacteria Few /HPF (NONE) Sodium Level 137 MMOL/L (136-145) 137 MMOL/L (136-145) Potassium Level 4.0 MMOL/L (3.5-5.1) 3.8 MMOL/L (3.5-5.1) Chloride Level 99 MMOL/L (98-107) 103 MMOL/L (98-107) Carbon Dioxide Level 29 MMOL/L (21-32) 26 MMOL/L (21-32) Anion Gap 9 mmol/L (5-15) 9 mmol/L (5-15) Blood Urea Nitrogen 22 mg/dL (7-18) H 17 mg/dL (7-18) Creatinine 1.0 MG/DL (0.55-1.30) 0.9 MG/DL (0.55-1.30) Estimat Glomerular Filtration Rate mL/min (>60) mL/min (>60) Glucose Level 98 MG/DL (74-106) 91 MG/DL (74-106) Calcium Level 10.4 MG/DL (8.5-10.1) H 9.4 MG/DL (8.5-10.1) Total Bilirubin 0.2 MG/DL (0.2-1.0) 0.2 MG/DL (0.2-1.0) Aspartate Amino Transf (AST/SGOT) 18 U/L (15-37) 20 U/L (15-37) Alanine Aminotransferase (ALT/SGPT) 20 U/L (12-78) 11 U/L (12-78) L Alkaline Phosphatase 115 U/L (46-116) 88 U/L (46-116) Total Protein 8.8 G/DL (6.4-8.2) H 7.0 G/DL (6.4-8.2) Albumin 4.1 G/DL (3.4-5.0) 3.2 G/DL (3.4-5.0) L Globulin 4.7 g/dL 3.8 g/dL Albumin/Globulin Ratio 0.9 (1.0-2.7) L 0.8 (1.0-2.7) L Lipase 373 U/L (73-393) 245 U/L (73-393) Activated Partial Thromboplast Time 26 SEC (23-33) Amylase Level 145 U/L (25-115) H Height (Feet): 5 Height (Inches): 6.00 Weight (Pounds): 100 Medications Current Medications Medications (Trade) Dose Ordered Sig/Matt Route PRN Reason Start Time Stop Time Status Last Admin Dose Admin Acetaminophen (Tylenol) 650 mg Q4H PRN ORAL fever 10/11/17 22:15 11/10/17 22:14 Al Hydroxide/Mg Hydroxide (Mylanta II) 30 ml Q6H PRN ORAL dyspepsia 10/11/17 22:15 11/10/17 22:14 Captopril (Capoten) 25 mg EVERY 8 HOURS ORAL 10/12/17 06:00 11/11/17 05:59 10/12/17 14:03 Clonidine HCl (Catapres Tab) 0.1 mg Q6H PRN ORAL For High Blood Pressure>160 10/12/17 07:00 11/11/17 06:59 Dextrose (Dextrose 50%) STAT PRN IV Hypoglycemia 10/11/17 22:15 11/10/17 22:14 Dextrose/Sodium Chloride 1,000 ml @ 75 mls/hr [id number] IV 10/11/17 22:09 11/10/17 22:08 10/12/17 14:04 Diphenhydramine HCl (Benadryl) 25 mg Q6H PRN ORAL Itching/Pruritis 10/11/17 22:15 11/10/17 22:14 Heparin Sodium (Porcine) (Heparin 5000 units/ml) 5,000 units EVERY 12 HOURS SUBQ 10/12/17 09:00 11/11/17 08:59 10/12/17 10:19 Ketorolac Tromethamine (Toradol 30mg) 15 mg Q6H PRN IV For Pain 10/12/17 13:00 10/17/17 12:59 10/12/17 08:42 Lorazepam (Ativan 2mg/ml 1ml) 1 mg EVERY 4 HOURS PRN IV agitation 10/11/17 22:15 10/18/17 22:14 Nitroglycerin (Ntg) 0.4 mg Q5M X 3 DOSES PRN SL Prn Chest Pain 10/11/17 22:15 11/10/17 22:14 Ondansetron HCl (Zofran) 4 mg Q6H PRN IVP Nausea & Vomiting 10/11/17 22:15 11/10/17 22:14 Pantoprazole (Protonix) 40 mg DAILY IV 10/12/17 09:00 11/11/17 08:59 10/12/17 10:17 Polyethylene Glycol (Miralax) 17 gm HSPRN PRN ORAL Constipation 10/11/17 22:15 11/10/17 22:14 Promethazine HCl (Phenergan) 25 mg EVERY 8 HOURS PRN IV refractory nausea 10/11/17 22:15 11/10/17 22:14 Temazepam (Restoril) 15 mg HSPRN PRN ORAL Insomnia 10/11/17 22:15 10/18/17 22:14 Assessment/Plan Problem List: (1) Intractable abdominal pain ICD Codes: R10.9 - Unspecified abdominal pain SNOMED: 99361113, 044659790 (2) History of cholecystectomy ICD Codes: Z98.890 - Other specified postprocedural states; Z90.49 - Acquired absence of other specified parts of digestive tract SNOMED: 15101822, 947956628 (3) Pancreatitis ICD Codes: K85.90 - Acute pancreatitis without necrosis or infection, unspecified SNOMED: 69712010 Assessment/Plan NPO iv fluids [facility] records GI and surgery evaluation incidental finding of femoral thormbosis, Vascular called. FUENTES FLORES Oct 12, 2017 16:11
--- NOTE | 2017-10-12 16:54 | Diagnostic Imaging Report ---
Indication: Abdominal pain Technique: Coronal and axial single shot fast spin-echo breath-hold, axial T2 FRFSE, 2-D thick slab MRCP, AXIAL 2-D FIESTA fat saturated, axial 3-D dual echo breath-hold, water weighted axial LAVA FLEX, revealed 3-D MRCP images were obtained of the abdomen. MIP reconstructions were generated of the bile ducts Comparison: Reference made to ultrasound of earlier the same day, CT abdomen and pelvis 10/11/2017 Findings: As previously demonstrated and reported, the gallbladder is surgically absent. There is dilatation of the extrahepatic and central intrahepatic bile ducts, cystic duct stump, common bile duct and common hepatic duct measuring up to 15 mm in diameter. There is tapering to normal caliber at the level of the ampulla, and no intraluminal filling defects or surrounding mass demonstrated. The pancreatic duct is minimally ectatic. The liver, pancreas, spleen, adrenals, kidneys are all unremarkable. Colonic diverticulosis described on recent CT scan is better visualized on that study. There is minimal posterior dependent atelectatic change in the lungs. Impression: Extrahepatic and central intrahepatic biliary ductal dilatation, as described. Most likely on the basis of senescent and postcholecystectomy changes. No definite downstream obstructing lesion. However, occult obstructing lesion at the level of the ampulla cannot be completely excluded, particularly given the degree of ductal dilatation, and correlation with liver function tests is recommended. No other acute or significant abnormality demonstrated.
[2017-10-12 20:00] VITALS: BP 147/66
[2017-10-13] VITALS: BP 182/90
[2017-10-13] MEDS: D5 1/2NS 1,000 ML IV SCH ×2 (00:43→15:18)
[2017-10-13] MEDS: Ketorolac 30mg Inj IV PRN ×3 (00:44→18:51)
[2017-10-13 04:00] VITALS: BP 123/72
[2017-10-13] MEDS: Captopril 25mg tab ORAL SCH ×3 (06:02→21:11)
[2017-10-13 06:35] LABS: HEMATOCRIT 32.8 % (37.0-47.0); HEMOGLOBIN 10.6 G/DL (12.0-16.0); MEAN CORPUSCULAR VOLUME 75 FL (80-99); PLATELET COUNT 262 K/UL (150-450); RED BLOOD COUNT 4.39 M/UL (4.20-5.40); RED CELL DISTRIBUTION WIDTH 14.7 % (11.6-14.8); WHITE BLOOD COUNT 8.6 K/UL (4.8-10.8)
[2017-10-13 06:58] LABS: AMYLASE 125 U/L (25-115)
[2017-10-13 07:32] LABS: ANION GAP 10 mmol/L (5-15); BLOOD UREA NITROGEN 15 mg/dL (7-18); CALCIUM 8.9 MG/DL (8.5-10.1); CARBON DIOXIDE 23 MMOL/L (21-32); CHLORIDE 102 MMOL/L (98-107); FERRITIN 37 NG/ML (8-388); POTASSIUM 3.4 MMOL/L (3.5-5.1); SODIUM 135 MMOL/L (136-145)
[2017-10-13 07:55] LABS: % IRON SATURATION 63 % (15-50); IRON 196 ug/dL (50-175); TOTAL IRON BINDING CAPACITY 309 ug/dL (250-450)
[2017-10-13] MEDS: Heparin 5000 units/ml inj SUBQ SCH ×2 (08:53→21:10)
--- NOTE | 2017-10-13 10:23 | GI Progress Note ---
Assessment/Plan Problems: (1) Right flank pain ICD Codes: R10.9 - Unspecified abdominal pain SNOMED: 248749402 (2) Pancreatitis ICD Codes: K85.90 - Acute pancreatitis without necrosis or infection, unspecified SNOMED: 02354936 (3) Intractable abdominal pain ICD Codes: R10.9 - Unspecified abdominal pain SNOMED: 99134876, 608148728 (4) Back pain ICD Codes: M54.9 - Dorsalgia, unspecified SNOMED: 901754646 (5) History of cholecystectomy ICD Codes: Z98.890 - Other specified postprocedural states; Z90.49 - Acquired absence of other specified parts of digestive tract SNOMED: 96576086, 931207301 Status: unchanged Status Narrative Discussed with Dr. Escoto. Assessment/Plan Abdominal U/S reviewed >> - Surgically absent gallbladder - Ectatic extrahepatic bile ducts, likely related to age and postcholecystectomy state. - Incidental finding and lower pole renal cyst CT AP reviewed >> - No acute abnormality - Extrahepatic and central intrahepatic biliary ductal dilatation, probably related to prior cholecystectomy and senescent changes - Colonic diverticulosis. 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 iron elevation folate deficiency ERCP refused by family members >> performed at [facility] in 2011 symptomatic treatment pain mgmt anemia work up OB stool r/o GI bleed monitor H&H, prn transfusions bowel regime folate ppi fu labs The patient was seen and examined at bedside and all new and available data was reviewed in the patients chart. I agree with the above findings, impression and plan. (Patient seen earlier today. Signature stamp does not reflect patient encounter time.). - Angelina Escoto MD Subjective Subjective no abdominal pain right flank pain present Objective Last 24 Hour Vital Signs Date Time Temp Pulse Resp B/P (MAP) Pulse Ox O2 Delivery O2 Flow Rate FiO2 10/13/17 06:02 123/72 10/13/17 04:00 99.4 81 20 123/72 96 Room Air 99.4 10/13/17 00:55 182/90 10/13/17 00:00 98.9 69 20 182/90 98 Room Air 98.9 10/12/17 22:15 145/68 10/12/17 20:00 97.8 56 20 147/66 98 Room Air 97.8 10/12/17 16:04 97.7 53 21 152/75 99 Room Air 97.7 10/12/17 14:03 128/79 10/12/17 12:20 98.0 60 17 128/79 95 Room Air 98.0 Intake and Output 10/12/17 10/13/17 19:00 07:00 Intake Total 690 ml 825 ml Balance 690 ml 825 ml Intake Oral 240 ml IV Total 450 ml 825 ml # Voids 3 2 Laboratory Tests Test 10/13/17 05:40 White Blood Count 8.6 K/UL (4.8-10.8) # Red Blood Count 4.39 M/UL (4.20-5.40) Hemoglobin 10.6 G/DL (12.0-16.0) L Hematocrit 32.8 % (37.0-47.0) L Mean Corpuscular Volume 75 FL (80-99) L Mean Corpuscular Hemoglobin 24.0 PG (27.0-31.0) L Mean Corpuscular Hemoglobin Concent 32.2 G/DL (32.0-36.0) Red Cell Distribution Width 14.7 % (11.6-14.8) Platelet Count 262 K/UL (150-450) Mean Platelet Volume 6.2 FL (6.5-10.1) L Neutrophils (%) (Auto) % (45.0-75.0) Lymphocytes (%) (Auto) % (20.0-45.0) Monocytes (%) (Auto) % (1.0-10.0) Eosinophils (%) (Auto) % (0.0-3.0) Basophils (%) (Auto) % (0.0-2.0) Reticulocyte Count 0.9 % (0.0-2.0) Prothrombin Time 10.6 SEC (9.30-11.50) Prothromb Time International Ratio 1.0 (0.9-1.1) Activated Partial Thromboplast Time 31 SEC (23-33) Sodium Level 135 MMOL/L (136-145) L Potassium Level 3.4 MMOL/L (3.5-5.1) L Chloride Level 102 MMOL/L (98-107) Carbon Dioxide Level 23 MMOL/L (21-32) Anion Gap 10 mmol/L (5-15) Blood Urea Nitrogen 15 mg/dL (7-18) Creatinine 1.0 MG/DL (0.55-1.30) Estimat Glomerular Filtration Rate mL/min (>60) Glucose Level 131 MG/DL (74-106) H Calcium Level 8.9 MG/DL (8.5-10.1) Iron Level 196 ug/dL (50-175) H Total Iron Binding Capacity 309 ug/dL (250-450) Percent Iron Saturation 63 % (15-50) H Unsaturated Iron Binding 113 ug/dL (112-346) Ferritin 37 NG/ML (8-388) Amylase Level 125 U/L (25-115) H Lipase 207 U/L (73-393) Vitamin B12 Level 303 PG/ML (193-986) Folate 7.2 NG/ML (8.6-58.9) L Thyroid Stimulating Hormone (TSH) 2.440 uiU/mL (0.358-3.740) Free Thyroxine 0.64 NG/DL (0.76-1.46) L Height (Feet): 5 Height (Inches): 6.00 Weight (Pounds): 100 General Appearance: WD/WN, no apparent distress, alert Cardiovascular: normal rate Respiratory/Chest: normal breath sounds, no respiratory distress Abdominal Exam: normal bowel sounds, non tender, soft Extremities: non-tender Odalys Tavarez N.P. Oct 13, 2017 10:23 TAL ESCOTO Oct 18, 2017 12:21
[2017-10-13] MEDS: Pantoprazole Inj IV SCH (10:30)
[2017-10-13 12:00] VITALS: BP 124/70
--- NOTE | 2017-10-13 15:02 | Pulmonology Progress Note ---
Assessment/Plan Problems: (1) Intractable abdominal pain (2) History of cholecystectomy (3) Pancreatitis Assessment/Plan met with daughter, ( an ER nurse) who stated that they don't want any ERCP they want pain control and possibly injections in her spine for pain, considering multiple allergies she has called Dr Ellis for pain management. Impression: Extrahepatic and central intrahepatic biliary ductal dilatation, as described. Most likely on the basis of senescent and postcholecystectomy changes. No definite downstream obstructing lesion. However, occult obstructing lesion at the level of the ampulla cannot be completely excluded, particularly given the degree of ductal dilatation, and correlation with liver function tests is recommended. Subjective ROS Limited/Unobtainable: No Interval Events: c/p back pain, Allergies: Coded Allergies: HYDROMORPHONE (Unverified Allergy, Unknown, vomitting, 10/11/17) LEVOFLOXACIN (Unverified Allergy, Unknown, Rash, 10/11/17) MEPERIDINE (Unverified Allergy, Unknown, nausea, 10/11/17) MORPHINE (Unverified Allergy, Unknown, nausea rash, 10/11/17) Objective Last 24 Hour Vital Signs Date Time Temp Pulse Resp B/P (MAP) Pulse Ox O2 Delivery O2 Flow Rate FiO2 10/13/17 12:00 98.0 81 18 124/70 96 98.0 10/13/17 11:23 99.4 10/13/17 10:31 99.4 10/13/17 06:02 123/72 10/13/17 04:00 99.4 81 20 123/72 96 Room Air 99.4 10/13/17 00:55 182/90 10/13/17 00:00 98.9 69 20 182/90 98 Room Air 98.9 10/12/17 22:15 145/68 10/12/17 20:00 97.8 56 20 147/66 98 Room Air 97.8 10/12/17 16:04 97.7 53 21 152/75 99 Room Air 97.7 Intake and Output 10/12/17 10/13/17 19:00 07:00 Intake Total 690 ml 825 ml Balance 690 ml 825 ml Intake Oral 240 ml IV Total 450 ml 825 ml # Voids 3 2 General Appearance: cachetic Respiratory/Chest: chest wall non-tender, lungs clear Cardiovascular: normal peripheral pulses, normal rate Abdomen: normal bowel sounds, soft, non tender Genitourinary: normal external genitalia Extremities: no cyanosis 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, no motor/sensory deficits, normal mood/affect Lymphatic: no neck adenopathy Laboratory Tests 10/13/17 05:40: White Blood Count 8.6#, Red Blood Count 4.39, Hemoglobin 10.6L, Hematocrit 32.8L , Mean Corpuscular Volume 75L, Mean Corpuscular Hemoglobin 24.0L, Mean Corpuscular Hemoglobin Concent 32.2, Red Cell Distribution Width 14.7, Platelet Count 262, Mean Platelet Volume 6.2L, Neutrophils (%) (Auto) , Lymphocytes (%) ( Auto) , Monocytes (%) (Auto) , Eosinophils (%) (Auto) , Basophils (%) (Auto) , Reticulocyte Count 0.9, Prothrombin Time 10.6, Prothromb Time International Ratio 1.0, Activated Partial Thromboplast Time 31, Sodium Level 135L, Potassium Level 3.4L, Chloride Level 102, Carbon Dioxide Level 23, Anion Gap 10, Blood Urea Nitrogen 15, Creatinine 1.0, Estimat Glomerular Filtration Rate , Glucose Level 131H, Calcium Level 8.9, Iron Level 196H, Total Iron Binding Capacity 309 , Percent Iron Saturation 63H, Unsaturated Iron Binding 113, Ferritin 37, Amylase Level 125H, Lipase 207, Vitamin B12 Level 303, Folate 7.2L, Thyroid Stimulating Hormone (TSH) 2.440, Free Thyroxine 0.64L Current Medications Medications (Trade) Dose Ordered Sig/Matt Route PRN Reason Start Time Stop Time Status Last Admin Dose Admin Acetaminophen (Tylenol) 650 mg Q4H PRN ORAL fever 10/11/17 22:15 11/10/17 22:14 Al Hydroxide/Mg Hydroxide (Mylanta II) 30 ml Q6H PRN ORAL dyspepsia 10/11/17 22:15 11/10/17 22:14 Captopril (Capoten) 25 mg EVERY 8 HOURS ORAL 10/12/17 06:00 11/11/17 05:59 10/13/17 06:02 Clonidine HCl (Catapres Tab) 0.1 mg Q6H PRN ORAL For High Blood Pressure>160 10/12/17 07:00 11/11/17 06:59 10/13/17 00:55 Dextrose (Dextrose 50%) STAT PRN IV Hypoglycemia 10/11/17 22:15 11/10/17 22:14 Dextrose/Sodium Chloride 1,000 ml @ 75 mls/hr [id number] IV 10/11/17 22:09 11/10/17 22:08 10/13/17 00:43 Diphenhydramine HCl (Benadryl) 25 mg Q6H PRN ORAL Itching/Pruritis 10/11/17 22:15 11/10/17 22:14 Folic Acid (Folate) 1 mg DAILY ORAL 10/14/17 09:00 11/13/17 08:59 Heparin Sodium (Porcine) (Heparin 5000 units/ml) 5,000 units EVERY 12 HOURS SUBQ 10/12/17 09:00 11/11/17 08:59 10/13/17 08:53 Ketorolac Tromethamine (Toradol 30mg) 15 mg Q6H PRN IV For Pain 10/12/17 13:00 10/17/17 12:59 10/13/17 10:31 Lorazepam (Ativan 2mg/ml 1ml) 1 mg EVERY 4 HOURS PRN IV agitation 10/11/17 22:15 10/18/17 22:14 Nitroglycerin (Ntg) 0.4 mg Q5M X 3 DOSES PRN SL Prn Chest Pain 10/11/17 22:15 11/10/17 22:14 Ondansetron HCl (Zofran) 4 mg Q6H PRN IVP Nausea & Vomiting 10/11/17 22:15 11/10/17 22:14 Pantoprazole (Protonix) 40 mg DAILY IV 10/12/17 09:00 11/11/17 08:59 10/13/17 10:30 Polyethylene Glycol (Miralax) 17 gm HSPRN PRN ORAL Constipation 10/11/17 22:15 11/10/17 22:14 Promethazine HCl (Phenergan) 25 mg EVERY 8 HOURS PRN IV refractory nausea 10/11/17 22:15 11/10/17 22:14 Temazepam (Restoril) 15 mg HSPRN PRN ORAL Insomnia 10/11/17 22:15 10/18/17 22:14 FUENTES FLORES Oct 13, 2017 15:02
--- NOTE | 2017-10-13 15:17 | General Surgery Progress Note ---
General Surgery-Progress Note Subjective Symptoms: improved Additional Comments having back pain only now. no abd pain. tolerating diet. ambulatory and out of bed. no n/v/f/c. Objective Last 24 Hour Vital Signs Date Time Temp Pulse Resp B/P (MAP) Pulse Ox O2 Delivery O2 Flow Rate FiO2 10/13/17 12:00 98.0 81 18 124/70 96 98.0 10/13/17 11:23 99.4 10/13/17 10:31 99.4 10/13/17 06:02 123/72 10/13/17 04:00 99.4 81 20 123/72 96 Room Air 99.4 10/13/17 00:55 182/90 10/13/17 00:00 98.9 69 20 182/90 98 Room Air 98.9 10/12/17 22:15 145/68 10/12/17 20:00 97.8 56 20 147/66 98 Room Air 97.8 10/12/17 16:04 97.7 53 21 152/75 99 Room Air 97.7 I&O Intake and Output 10/12/17 10/13/17 19:00 07:00 Intake Total 690 ml 825 ml Balance 690 ml 825 ml Intake Oral 240 ml IV Total 450 ml 825 ml # Voids 3 2 Cardiovascular: RSR Respiratory: clear Abdomen: soft, flat, non-tender, present bowel sounds Extremities: no tenderness Laboratory Tests Test 10/13/17 05:40 White Blood Count 8.6 K/UL (4.8-10.8) # Red Blood Count 4.39 M/UL (4.20-5.40) Hemoglobin 10.6 G/DL (12.0-16.0) L Hematocrit 32.8 % (37.0-47.0) L Mean Corpuscular Volume 75 FL (80-99) L Mean Corpuscular Hemoglobin 24.0 PG (27.0-31.0) L Mean Corpuscular Hemoglobin Concent 32.2 G/DL (32.0-36.0) Red Cell Distribution Width 14.7 % (11.6-14.8) Platelet Count 262 K/UL (150-450) Mean Platelet Volume 6.2 FL (6.5-10.1) L Neutrophils (%) (Auto) % (45.0-75.0) Lymphocytes (%) (Auto) % (20.0-45.0) Monocytes (%) (Auto) % (1.0-10.0) Eosinophils (%) (Auto) % (0.0-3.0) Basophils (%) (Auto) % (0.0-2.0) Reticulocyte Count 0.9 % (0.0-2.0) Prothrombin Time 10.6 SEC (9.30-11.50) Prothromb Time International Ratio 1.0 (0.9-1.1) Activated Partial Thromboplast Time 31 SEC (23-33) Sodium Level 135 MMOL/L (136-145) L Potassium Level 3.4 MMOL/L (3.5-5.1) L Chloride Level 102 MMOL/L (98-107) Carbon Dioxide Level 23 MMOL/L (21-32) Anion Gap 10 mmol/L (5-15) Blood Urea Nitrogen 15 mg/dL (7-18) Creatinine 1.0 MG/DL (0.55-1.30) Estimat Glomerular Filtration Rate mL/min (>60) Glucose Level 131 MG/DL (74-106) H Calcium Level 8.9 MG/DL (8.5-10.1) Iron Level 196 ug/dL (50-175) H Total Iron Binding Capacity 309 ug/dL (250-450) Percent Iron Saturation 63 % (15-50) H Unsaturated Iron Binding 113 ug/dL (112-346) Ferritin 37 NG/ML (8-388) Amylase Level 125 U/L (25-115) H Lipase 207 U/L (73-393) Vitamin B12 Level 303 PG/ML (193-986) Folate 7.2 NG/ML (8.6-58.9) L Thyroid Stimulating Hormone (TSH) 2.440 uiU/mL (0.358-3.740) Free Thyroxine 0.64 NG/DL (0.76-1.46) L Plan Problems: (1) Abdominal pain Assessment & Plan: abdominal pain. back pain. RUQ pain. epigastric pain. not consistent and changes. CT with dilated biliary tract. history of biliary stones requiring ERCP? on exam can illicit pain on right lower ribs anteriorly resembling costochondritis CT, US, and MRCP reviewed. biliary ducts dilated without obstruction. tapers down at ampulla. -ERCP but family refused -pain management -trend labs. will follow with recs. thank you for this consultation. Hugh Delarosa Oct 13, 2017 15:16
[2017-10-13 16:00] VITALS: BP 156/72
[2017-10-13 20:00] VITALS: BP 153/72
[2017-10-14] VITALS: BP 147/77
[2017-10-14] MEDS: D5 1/2NS 1,000 ML IV SCH (02:30)
[2017-10-14 04:00] VITALS: BP 152/79
[2017-10-14] MEDS: Captopril 25mg tab ORAL SCH ×3 (06:04→22:29)
[2017-10-14 07:19] LABS: HEMATOCRIT 30.6 % (37.0-47.0); MEAN CORPUSCULAR VOLUME 74 FL (80-99); MONOCYTES % (AUTO) 12.2 % (1.0-10.0); NEUTROPHILS % (AUTO) 62.8 % (45.0-75.0); PLATELET COUNT 236 K/UL (150-450); RED BLOOD COUNT 4.14 M/UL (4.20-5.40); RED CELL DISTRIBUTION WIDTH 14.5 % (11.6-14.8); WHITE BLOOD COUNT 4.7 K/UL (4.8-10.8)
[2017-10-14 07:29] LABS: ANION GAP 7 mmol/L (5-15); BLOOD UREA NITROGEN 10 mg/dL (7-18); CALCIUM 8.9 MG/DL (8.5-10.1); CARBON DIOXIDE 25 MMOL/L (21-32); CHLORIDE 105 MMOL/L (98-107); CREATININE 0.9 MG/DL (0.55-1.30); POTASSIUM 3.3 MMOL/L (3.5-5.1); SODIUM 137 MMOL/L (136-145)
[2017-10-14 08:00] VITALS: BP 116/69
[2017-10-14] MEDS: Ketorolac 30mg Inj IV PRN ×2 (08:09→18:40)
[2017-10-14] MEDS: Pantoprazole Inj IV SCH (08:09)
[2017-10-14] MEDS: Heparin 5000 units/ml inj SUBQ SCH ×2 (08:15→20:44)
--- NOTE | 2017-10-14 09:42 | Pulmonology Progress Note ---
Assessment/Plan Problems: (1) Intractable abdominal pain (2) History of cholecystectomy (3) Pancreatitis Assessment/Plan met with daughter, ( an ER nurse) who stated that they don't want any ERCP they want pain control and possibly injections in her spine for pain, considering multiple allergies she has called Dr Ellis for pain management, awaiting pain consult Impression: Extrahepatic and central intrahepatic biliary ductal dilatation, as described. Most likely on the basis of senescent and postcholecystectomy changes. No definite downstream obstructing lesion. However, occult obstructing lesion at the level of the ampulla cannot be completely excluded, particularly given the degree of ductal dilatation, and correlation with liver function tests is recommended. Subjective ROS Limited/Unobtainable: No Interval Events: refusing any studies, wants only pain med Allergies: Coded Allergies: HYDROMORPHONE (Unverified Allergy, Unknown, vomitting, 10/11/17) LEVOFLOXACIN (Unverified Allergy, Unknown, Rash, 10/11/17) MEPERIDINE (Unverified Allergy, Unknown, nausea, 10/11/17) MORPHINE (Unverified Allergy, Unknown, nausea rash, 10/11/17) Objective Last 24 Hour Vital Signs Date Time Temp Pulse Resp B/P (MAP) Pulse Ox O2 Delivery O2 Flow Rate FiO2 10/14/17 08:00 98.2 70 20 116/69 96 98.2 10/14/17 06:04 157/82 10/14/17 04:00 96.9 58 18 152/79 96 96.9 10/14/17 00:00 97.4 57 18 147/77 97 97.4 10/13/17 21:11 153/72 10/13/17 20:00 98.0 67 21 153/72 97 98.0 10/13/17 18:51 97.5 10/13/17 16:00 97.5 61 20 156/72 97 97.5 10/13/17 15:18 153/84 10/13/17 12:00 98.0 81 18 124/70 96 98.0 10/13/17 11:23 99.4 10/13/17 10:31 99.4 Intake and Output 10/13/17 10/14/17 19:00 07:00 Intake Total 940 ml 945 ml Balance 940 ml 945 ml Intake Oral 340 ml 120 ml IV Total 600 ml 825 ml # Voids 1 4 General Appearance: WD/WN HEENT: normocephalic, atraumatic Respiratory/Chest: chest wall non-tender, lungs clear, normal breath sounds Cardiovascular: normal peripheral pulses, normal rate Abdomen: normal bowel sounds, no organomegaly Genitourinary: normal external genitalia Extremities: no cyanosis Skin: no rash 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 Laboratory Tests 10/14/17 06:10: White Blood Count 4.7L, Red Blood Count 4.14L, Hemoglobin 10.0L, Hematocrit 30.6L, Mean Corpuscular Volume 74L, Mean Corpuscular Hemoglobin 24.3L, Mean Corpuscular Hemoglobin Concent 32.8, Red Cell Distribution Width 14.5, Platelet Count 236, Mean Platelet Volume 6.8, Neutrophils (%) (Auto) 62.8, Lymphocytes (% ) (Auto) 18.0L, Monocytes (%) (Auto) 12.2H, Eosinophils (%) (Auto) 6.0H, Basophils (%) (Auto) 1.0, Sodium Level 137, Potassium Level 3.3L, Chloride Level 105, Carbon Dioxide Level 25, Anion Gap 7, Blood Urea Nitrogen 10, Creatinine 0.9, Estimat Glomerular Filtration Rate , Glucose Level 95, Calcium Level 8.9 Current Medications Medications (Trade) Dose Ordered Sig/Matt Route PRN Reason Start Time Stop Time Status Last Admin Dose Admin Acetaminophen (Tylenol) 650 mg Q4H PRN ORAL fever 10/11/17 22:15 11/10/17 22:14 Al Hydroxide/Mg Hydroxide (Mylanta II) 30 ml Q6H PRN ORAL dyspepsia 10/11/17 22:15 11/10/17 22:14 Captopril (Capoten) 25 mg EVERY 8 HOURS ORAL 10/12/17 06:00 11/11/17 05:59 10/14/17 06:04 Clonidine HCl (Catapres Tab) 0.1 mg Q6H PRN ORAL For High Blood Pressure>160 10/12/17 07:00 11/11/17 06:59 10/13/17 00:55 Dextrose (Dextrose 50%) STAT PRN IV Hypoglycemia 10/11/17 22:15 11/10/17 22:14 Dextrose/Sodium Chloride 1,000 ml @ 75 mls/hr [id number] IV 10/11/17 22:09 11/10/17 22:08 10/14/17 02:30 Diphenhydramine HCl (Benadryl) 25 mg Q6H PRN ORAL Itching/Pruritis 10/11/17 22:15 11/10/17 22:14 Folic Acid (Folate) 1 mg DAILY ORAL 10/14/17 09:00 11/13/17 08:59 10/14/17 08:09 Heparin Sodium (Porcine) (Heparin 5000 units/ml) 5,000 units EVERY 12 HOURS SUBQ 10/12/17 09:00 11/11/17 08:59 10/14/17 08:15 Ketorolac Tromethamine (Toradol 30mg) 15 mg Q6H PRN IV For Pain 10/12/17 13:00 10/17/17 12:59 10/14/17 08:09 Lorazepam (Ativan 2mg/ml 1ml) 1 mg EVERY 4 HOURS PRN IV agitation 10/11/17 22:15 10/18/17 22:14 Nitroglycerin (Ntg) 0.4 mg Q5M X 3 DOSES PRN SL Prn Chest Pain 10/11/17 22:15 11/10/17 22:14 Ondansetron HCl (Zofran) 4 mg Q6H PRN IVP Nausea & Vomiting 10/11/17 22:15 11/10/17 22:14 Pantoprazole (Protonix) 40 mg DAILY IV 10/12/17 09:00 11/11/17 08:59 10/14/17 08:09 Polyethylene Glycol (Miralax) 17 gm HSPRN PRN ORAL Constipation 10/11/17 22:15 11/10/17 22:14 Promethazine HCl (Phenergan) 25 mg EVERY 8 HOURS PRN IV refractory nausea 10/11/17 22:15 11/10/17 22:14 Temazepam (Restoril) 15 mg HSPRN PRN ORAL Insomnia 10/11/17 22:15 10/18/17 22:14 FUENTES FLORES Oct 14, 2017 09:42
[2017-10-14] MEDS ORDERED: D5 1/2NS 1000ml IV ONE (11:07)
[2017-10-14 12:00] VITALS: BP 144/66
--- NOTE | 2017-10-14 12:05 | General Surgery Progress Note ---
General Surgery-Progress Note Subjective Additional Comments still having back pain. no abdominal pain. Objective Last 24 Hour Vital Signs Date Time Temp Pulse Resp B/P (MAP) Pulse Ox O2 Delivery O2 Flow Rate FiO2 10/14/17 08:00 98.2 70 20 116/69 96 98.2 10/14/17 06:04 157/82 10/14/17 04:00 96.9 58 18 152/79 96 96.9 10/14/17 00:00 97.4 57 18 147/77 97 97.4 10/13/17 21:11 153/72 10/13/17 20:00 98.0 67 21 153/72 97 98.0 10/13/17 18:51 97.5 10/13/17 16:00 97.5 61 20 156/72 97 97.5 10/13/17 15:18 153/84 I&O Intake and Output 10/13/17 10/14/17 19:00 07:00 Intake Total 940 ml 945 ml Balance 940 ml 945 ml Intake Oral 340 ml 120 ml IV Total 600 ml 825 ml # Voids 1 4 Cardiovascular: RSR Respiratory: clear Abdomen: soft, flat, non-tender, present bowel sounds Extremities: no edema, no tenderness Laboratory Tests Test 10/14/17 06:10 White Blood Count 4.7 K/UL (4.8-10.8) L Red Blood Count 4.14 M/UL (4.20-5.40) L Hemoglobin 10.0 G/DL (12.0-16.0) L Hematocrit 30.6 % (37.0-47.0) L Mean Corpuscular Volume 74 FL (80-99) L Mean Corpuscular Hemoglobin 24.3 PG (27.0-31.0) L Mean Corpuscular Hemoglobin Concent 32.8 G/DL (32.0-36.0) Red Cell Distribution Width 14.5 % (11.6-14.8) Platelet Count 236 K/UL (150-450) Mean Platelet Volume 6.8 FL (6.5-10.1) Neutrophils (%) (Auto) 62.8 % (45.0-75.0) Lymphocytes (%) (Auto) 18.0 % (20.0-45.0) L Monocytes (%) (Auto) 12.2 % (1.0-10.0) H Eosinophils (%) (Auto) 6.0 % (0.0-3.0) H Basophils (%) (Auto) 1.0 % (0.0-2.0) Sodium Level 137 MMOL/L (136-145) Potassium Level 3.3 MMOL/L (3.5-5.1) L Chloride Level 105 MMOL/L (98-107) Carbon Dioxide Level 25 MMOL/L (21-32) Anion Gap 7 mmol/L (5-15) Blood Urea Nitrogen 10 mg/dL (7-18) Creatinine 0.9 MG/DL (0.55-1.30) Estimat Glomerular Filtration Rate mL/min (>60) Glucose Level 95 MG/DL (74-106) Calcium Level 8.9 MG/DL (8.5-10.1) Plan Problems: (1) Abdominal pain Assessment & Plan: abdominal pain. back pain. RUQ pain. epigastric pain. not consistent and changes. CT with dilated biliary tract. history of biliary stones requiring ERCP? on exam can illicit pain on right lower ribs anteriorly resembling costochondritis initially and since resolved CT, US, and MRCP reviewed. biliary ducts dilated without obstruction. tapers down at ampulla. mainly having back pain now. pain with getting out of bed and activity. -ERCP but family refused -pain management will follow with recs. thank you for this consultation. Hugh Delarosa Oct 14, 2017 12:05
[2017-10-14 16:00] VITALS: BP 171/86
--- NOTE | 2017-10-14 18:23 | General Progress Note ---
Assessment/Plan Assessment/Plan Assessment (1) Right flank pain ICD Codes: R10.9 - Unspecified abdominal pain SNOMED: 146010744 (2) Pancreatitis ICD Codes: K85.90 - Acute pancreatitis without necrosis or infection, unspecified SNOMED: 68265328 (3) Intractable abdominal pain ICD Codes: R10.9 - Unspecified abdominal pain SNOMED: 49880110, 789244407 (4) Back pain ICD Codes: M54.9 - Dorsalgia, unspecified SNOMED: 124320925 (5) History of cholecystectomy ICD Codes: Z98.890 - Other specified postprocedural states; Z90.49 - Acquired absence of other specified parts of digestive tract SNOMED: 92296723, 249459529 Status: unchanged . Assessment/Plan Abdominal U/S reviewed >> - Surgically absent gallbladder - Ectatic extrahepatic bile ducts, likely related to age and postcholecystectomy state. - Incidental finding and lower pole renal cyst CT AP reviewed >> - No acute abnormality - Extrahepatic and central intrahepatic biliary ductal dilatation, probably related to prior cholecystectomy and senescent changes - Colonic diverticulosis. 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 iron elevation folate deficiency ERCP refused by family members >> performed at [facility] [place] in 2011 symptomatic treatment pain mgmt anemia work up OB stool r/o GI bleed monitor H&H, prn transfusions bowel regime folate ppi fu labs Subjective Allergies: Coded Allergies: HYDROMORPHONE (Unverified Allergy, Unknown, vomitting, 10/11/17) LEVOFLOXACIN (Unverified Allergy, Unknown, Rash, 10/11/17) MEPERIDINE (Unverified Allergy, Unknown, nausea, 10/11/17) MORPHINE (Unverified Allergy, Unknown, nausea rash, 10/11/17) Subjective Feels OK family at bedside limited language Objective Last 24 Hour Vital Signs Date Time Temp Pulse Resp B/P (MAP) Pulse Ox O2 Delivery O2 Flow Rate FiO2 10/14/17 16:00 97.9 72 20 171/86 97 97.9 10/14/17 15:19 171/82 10/14/17 13:12 144/66 10/14/17 12:00 97.7 58 20 144/66 97 97.7 10/14/17 08:00 98.2 70 20 116/69 96 98.2 10/14/17 06:04 157/82 10/14/17 04:00 96.9 58 18 152/79 96 96.9 10/14/17 00:00 97.4 57 18 147/77 97 97.4 10/13/17 21:11 153/72 10/13/17 20:00 98.0 67 21 153/72 97 98.0 10/13/17 18:51 97.5 Intake and Output 10/13/17 10/14/17 19:00 07:00 Intake Total 940 ml 945 ml Balance 940 ml 945 ml Intake Oral 340 ml 120 ml IV Total 600 ml 825 ml # Voids 1 4 Laboratory Tests 10/14/17 06:10: White Blood Count 4.7L, Red Blood Count 4.14L, Hemoglobin 10.0L, Hematocrit 30.6L, Mean Corpuscular Volume 74L, Mean Corpuscular Hemoglobin 24.3L, Mean Corpuscular Hemoglobin Concent 32.8, Red Cell Distribution Width 14.5, Platelet Count 236, Mean Platelet Volume 6.8, Neutrophils (%) (Auto) 62.8, Lymphocytes (% ) (Auto) 18.0L, Monocytes (%) (Auto) 12.2H, Eosinophils (%) (Auto) 6.0H, Basophils (%) (Auto) 1.0, Sodium Level 137, Potassium Level 3.3L, Chloride Level 105, Carbon Dioxide Level 25, Anion Gap 7, Blood Urea Nitrogen 10, Creatinine 0.9, Estimat Glomerular Filtration Rate , Glucose Level 95, Calcium Level 8.9 Height (Feet): 5 Height (Inches): 6.00 Weight (Pounds): 100 Objective Thin WW NCAT supple CTA RRR Abd soft ND no edema RODNEY IRVING Oct 14, 2017 18:23
[2017-10-14] MEDS ORDERED: Methocarbamol 500mg tab ORAL PRN (19:45)
[2017-10-14 20:00] VITALS: BP 143/73
[2017-10-15] VITALS: BP 154/82
[2017-10-15 04:00] VITALS: BP 163/79
[2017-10-15] MEDS: Captopril 25mg tab ORAL SCH ×3 (05:37→21:37)
[2017-10-15 08:00] VITALS: BP 146/73
[2017-10-15] MEDS: Heparin 5000 units/ml inj SUBQ SCH ×2 (08:30→20:28)
--- NOTE | 2017-10-15 10:22 | Consultation ---
History of Present Illness General Date patient seen: Oct 15, 2017 Chief Complaint: Referring physician: Reason for Consultation: Present Illness Allergies: Coded Allergies: HYDROMORPHONE (Unverified Allergy, Unknown, vomitting, 10/11/17) LEVOFLOXACIN (Unverified Allergy, Unknown, Rash, 10/11/17) MEPERIDINE (Unverified Allergy, Unknown, nausea, 10/11/17) MORPHINE (Unverified Allergy, Unknown, nausea rash, 10/11/17) ACETAMINOPHEN (Verified Adverse Reaction, Intermediate, 10/14/17) abdominal irratation HYDROCODONE (Verified Adverse Reaction, Intermediate, 10/14/17) abdominal irratation Medication History Scheduled Valsartan (Diovan), 160 MG ORAL DAILY, (Reported) Scheduled PRN Zolpidem Tartrate* (Zolpidem Tartrate*), 5 MG ORAL BEDTIME PRN for Insomnia, ( Reported) Miscellaneous Medications Butalbital (Butalbital), 25 GM MC, (Reported) Captopril (Captopril), 25 MG PO, (Reported) Lipase/Protease/Amylase (Creon Dr 12,000 Units Capsule), 1 EACH PO, (Reported) Patient History Healthcare decision maker Gabriela Butt(Daughter) [phone] Resuscitation status Full Code Advanced Directive on File Physical Exam Last 24 Hour Vital Signs Date Time Temp Pulse Resp B/P (MAP) Pulse Ox O2 Delivery O2 Flow Rate FiO2 10/15/17 08:00 99.5 67 20 146/73 95 99.5 10/15/17 04:49 163/79 10/15/17 04:00 102.9 71 18 163/79 95 Room Air 102.9 10/15/17 00:00 98.4 64 20 154/82 97 98.4 10/14/17 22:29 145/74 10/14/17 20:00 99.5 65 20 143/73 95 99.5 10/14/17 16:00 97.9 72 20 171/86 97 97.9 10/14/17 15:19 171/82 10/14/17 13:12 144/66 10/14/17 12:00 97.7 58 20 144/66 97 97.7 Intake and Output 10/14/17 10/15/17 19:00 07:00 Intake Total 435 ml 240 ml Balance 435 ml 240 ml Intake Oral 360 ml 240 ml IV Total 75 ml # Voids 3 2 Height (Feet): 5 Height (Inches): 6.00 Weight (Pounds): 100 Medications Current Medications Medications (Trade) Dose Ordered Sig/Matt Route PRN Reason Start Time Stop Time Status Last Admin Dose Admin Al Hydroxide/Mg Hydroxide (Mylanta II) 30 ml Q6H PRN ORAL dyspepsia 10/11/17 22:15 11/10/17 22:14 Aspirin (ASA) 325 mg Q6H PRN ORAL Fever/Headache/Mild Pain 10/15/17 09:00 11/14/17 08:59 10/15/17 09:38 Captopril (Capoten) 25 mg EVERY 8 HOURS ORAL 10/12/17 06:00 11/11/17 05:59 10/14/17 22:29 Clonidine HCl (Catapres Tab) 0.1 mg Q6H PRN ORAL For High Blood Pressure>160 10/12/17 07:00 11/11/17 06:59 10/15/17 04:49 Dextrose (Dextrose 50%) STAT PRN IV Hypoglycemia 10/11/17 22:15 11/10/17 22:14 Diphenhydramine HCl (Benadryl) 25 mg Q6H PRN ORAL Itching/Pruritis 10/11/17 22:15 11/10/17 22:14 Folic Acid (Folate) 1 mg DAILY ORAL 10/14/17 09:00 11/13/17 08:59 10/15/17 08:27 Gabapentin (Neurontin) 100 mg BEDTIME ORAL 10/14/17 21:00 11/13/17 20:59 10/14/17 20:47 Heparin Sodium (Porcine) (Heparin 5000 units/ml) 5,000 units EVERY 12 HOURS SUBQ 10/12/17 09:00 11/11/17 08:59 10/15/17 08:30 Ketorolac Tromethamine (Toradol 30mg) 15 mg Q6H PRN IV For Pain 10/12/17 13:00 10/17/17 12:59 10/14/17 18:40 Lidocaine (Lidoderm 5% PATCH) 1 patch DAILY TDERMAL 10/15/17 10:30 11/14/17 10:29 Lorazepam (Ativan 2mg/ml 1ml) 1 mg EVERY 4 HOURS PRN IV agitation 10/11/17 22:15 10/18/17 22:14 Methocarbamol (Robaxin) 500 mg Q8H PRN ORAL Muscle Spasm 10/14/17 19:45 11/13/17 19:44 Nitroglycerin (Ntg) 0.4 mg Q5M X 3 DOSES PRN SL Prn Chest Pain 10/11/17 22:15 11/10/17 22:14 Ondansetron HCl (Zofran) 4 mg Q6H PRN IVP Nausea & Vomiting 10/11/17 22:15 11/10/17 22:14 Pantoprazole (Protonix) 40 mg ACBREAKFAST ORAL 10/16/17 06:30 11/14/17 08:59 Polyethylene Glycol (Miralax) 17 gm HSPRN PRN ORAL Constipation 10/11/17 22:15 11/10/17 22:14 Promethazine HCl (Phenergan) 25 mg EVERY 8 HOURS PRN IV refractory nausea 10/11/17 22:15 11/10/17 22:14 Temazepam (Restoril) 15 mg HSPRN PRN ORAL Insomnia 10/11/17 22:15 10/18/17 22:14 Assessment/Plan Assessment/Plan (1) Intractable back pain (2) Thoracic Spondylosis (3) Thoracic DDD Seen dictated. JEOVANNY GOODMAN Oct 15, 2017 10:22
[2017-10-15 11:54] VITALS: BP 129/68
[2017-10-15] MEDS: Piperacillin/Tazobactam 3.375 GM in D5W 110 ML IVPB SCH ×2 (14:35→21:37)
--- NOTE | 2017-10-15 15:05 | General Progress Note ---
Assessment/Plan Assessment/Plan Assessment (1) Right flank pain ICD Codes: R10.9 - Unspecified abdominal pain SNOMED: 834543372 (2) Pancreatitis ICD Codes: K85.90 - Acute pancreatitis without necrosis or infection, unspecified SNOMED: 83456857 (3) Intractable abdominal pain ICD Codes: R10.9 - Unspecified abdominal pain SNOMED: 59517871, 961469722 (4) Back pain ICD Codes: M54.9 - Dorsalgia, unspecified SNOMED: 722486161 (5) History of cholecystectomy ICD Codes: Z98.890 - Other specified postprocedural states; Z90.49 - Acquired absence of other specified parts of digestive tract SNOMED: 40356065, 651979502 Status: unchanged . Assessment/Plan Abdominal U/S reviewed >> - Surgically absent gallbladder - Ectatic extrahepatic bile ducts, likely related to age and postcholecystectomy state. - Incidental finding and lower pole renal cyst CT AP reviewed >> - No acute abnormality - Extrahepatic and central intrahepatic biliary ductal dilatation, probably related to prior cholecystectomy and senescent changes - Colonic diverticulosis. 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 iron elevation folate deficiency ERCP refused by family members >> performed at [facility] in 2011 symptomatic treatment pain mgmt anemia work up OB stool r/o GI bleed monitor H&H, prn transfusions bowel regime folate ppi fu labs Subjective Allergies: Coded Allergies: HYDROMORPHONE (Unverified Allergy, Unknown, vomitting, 10/11/17) LEVOFLOXACIN (Unverified Allergy, Unknown, Rash, 10/11/17) MEPERIDINE (Unverified Allergy, Unknown, nausea, 10/11/17) MORPHINE (Unverified Allergy, Unknown, nausea rash, 10/11/17) ACETAMINOPHEN (Verified Adverse Reaction, Intermediate, 10/14/17) abdominal irratation HYDROCODONE (Verified Adverse Reaction, Intermediate, 10/14/17) abdominal irratation Subjective Feels weak poor po family at bedside limited language Objective Last 24 Hour Vital Signs Date Time Temp Pulse Resp B/P (MAP) Pulse Ox O2 Delivery O2 Flow Rate FiO2 10/15/17 14:04 129/68 10/15/17 13:37 102.2 102.2 10/15/17 11:54 102.3 73 20 129/68 94 Room Air 102.3 10/15/17 08:00 99.5 67 20 146/73 95 99.5 10/15/17 04:49 163/79 10/15/17 04:00 102.9 71 18 163/79 95 Room Air 102.9 10/15/17 00:00 98.4 64 20 154/82 97 98.4 10/14/17 22:29 145/74 10/14/17 20:00 99.5 65 20 143/73 95 99.5 10/14/17 16:00 97.9 72 20 171/86 97 97.9 10/14/17 15:19 171/82 Intake and Output 10/14/17 10/15/17 19:00 07:00 Intake Total 435 ml 240 ml Balance 435 ml 240 ml Intake Oral 360 ml 240 ml IV Total 75 ml # Voids 3 2 Height (Feet): 5 Height (Inches): 6.00 Weight (Pounds): 100 Objective Thin WW NCAT supple CTA RRR Abd soft ND, mild diffuse TTP no edema RODNEY IRVING Oct 15, 2017 15:05
--- NOTE | 2017-10-15 15:33 | General Surgery Progress Note ---
General Surgery-Progress Note Subjective Additional Comments febrile. back pain improving with patches Objective Last 24 Hour Vital Signs Date Time Temp Pulse Resp B/P (MAP) Pulse Ox O2 Delivery O2 Flow Rate FiO2 10/15/17 14:04 129/68 10/15/17 13:37 102.2 102.2 10/15/17 11:54 102.3 73 20 129/68 94 Room Air 102.3 10/15/17 08:00 99.5 67 20 146/73 95 99.5 10/15/17 04:49 163/79 10/15/17 04:00 102.9 71 18 163/79 95 Room Air 102.9 10/15/17 00:00 98.4 64 20 154/82 97 98.4 10/14/17 22:29 145/74 10/14/17 20:00 99.5 65 20 143/73 95 99.5 10/14/17 16:00 97.9 72 20 171/86 97 97.9 I&O Intake and Output 10/14/17 10/15/17 19:00 07:00 Intake Total 435 ml 240 ml Balance 435 ml 240 ml Intake Oral 360 ml 240 ml IV Total 75 ml # Voids 3 2 Cardiovascular: RSR Respiratory: clear Abdomen: soft, flat, non-tender, present bowel sounds Extremities: no cyanosis Plan Problems: (1) Abdominal pain Assessment & Plan: abdominal pain. back pain. RUQ pain. epigastric pain. not consistent and changes. CT with dilated biliary tract. history of biliary stones requiring ERCP? on exam can illicit pain on right lower ribs anteriorly resembling costochondritis initially and since resolved CT, US, and MRCP reviewed. biliary ducts dilated without obstruction. tapers down at ampulla. mainly having back pain now. pain with getting out of bed and activity. -ERCP but family refused -pain management. appreciate pain team input. lidocaine patches seem to be helping -Abx, fever work up will follow with recs. thank you for this consultation. Hugh Delarosa Oct 15, 2017 15:33
--- NOTE | 2017-10-15 15:39 | Cardiology Report ---
APPROVED REPORT EKG Measurement Heart [id number] Normal sinus rhythm Possible Left atrial enlargement Borderline ECG
[2017-10-15 16:45] VITALS: BP 157/75
--- NOTE | 2017-10-15 16:45 | Consultation ---
DATE OF CONSULTATION: 10/15/2017 PAIN MANAGEMENT CONSULTATION REFERRING PHYSICIAN: Reina Waldron M.D. CONSULTING PHYSICIAN: Joshua Ellis M.D. PHYSICIAN CARDING MACHINE OPERATOR: Manuel Fernandes CHIEF COMPLAINT: Back pain. HISTORY OF PRESENT ILLNESS: This is an 87-year-old female, who is being seen on the medical/surgical floor of [facility] for initial comprehensive pain management consultation. The patient was admitted under the care of Dr. Waldron due to complaints of intractable pain reporting that it has been possibly in the abdominal area, being seen by space technologist and surgeon, who will continue to follow the patient. At this time, the patient is Senegalese and is being interpreted by daughter at bedside. The daughter reports that the patient had in the past had abdominal pain shooting into her back, however, now is having more right upper back pain, worse with movement and nothing has been helping to the pain except for Toradol 15 mg every six hours. The patient is allergic to acetaminophen, hydrocodone, hydromorphone, ephedrine, and morphine. We were consulted so that the patient would have adequate pain control while here in the hospital. The patient's daughter is reporting that the patient has had high fevers overnight, which was 102.9 degrees Fahrenheit, at this time is 99.5 degrees Fahrenheit. No blood cultures or urine cultures have been done. At this time, discussed with the nurse to inform Dr. Waldron for need of possible blood cultures, urine cultures, and Oncology/Hematology consultation and we will order MRI of the thoracic spine without contrast and a chest x-ray of the chest. PAST MEDICAL HISTORY: Pancreatitis. PAST SURGICAL HISTORY: Cholecystectomy. SOCIAL HISTORY: As per chart, denies smoking tobacco, drinking alcohol, or drug abuse. ALLERGIES: Acetaminophen, hydrocodone, hydromorphone, levofloxacin, ephedrine, and morphine. REVIEW OF SYSTEMS: Denies rash, fever at this time, chills, sweating, dizziness, drowsiness, blurred vision, sore throat, or change in weight. No shortness of breath, chest pain. is complaining of cough. No nausea, vomiting, diarrhea, or blood in the stool or urine. No bowel or bladder incontinence. No dysuria. She is complaining of mid back pain. PHYSICAL EXAMINATION: GENERAL: Alert, awake, and oriented. VITAL SIGNS: Blood pressure is 146/73, heart rate is 67, oxygen saturation 95%, respiratory rate 20, and temperature is 99.5 degrees Fahrenheit. HEENT: PERRLA. NECK: Range of motion is decreased due to the patient's condition. LUNGS: Decreased breath sounds bilaterally. HEART: S1 and S2 regular. ABDOMEN: Tenderness to palpation. BACK: Range of motion is decreased in flexion and extension with tenderness to paraspinous muscles, trapezius, or rhomboid muscles. EXTREMITIES: Upper and lower extremity range of motion is decreased. No cyanosis. No clubbing. Sensory is intact. Reflexes are not obtainable. No adenopathy. ASSESSMENT AND PLAN: This is an 87-year-old female with intractable back pain, thoracic spondylosis, and degenerative disk disease. We will order an MRI of the thoracic spine to rule out any further pathology in the midback as well as ordering a chest x-ray due to the patient's spiking fever. Discussed with the nurse about informing Dr. Waldron for possible need for a blood culture and urine culture, and possible recommendation for consultation with a tunnel inspector/oncologist, Dr. Barker. The patient was discussed with Dr. Ellis. Dr. Ellis concurred. We will follow the patient. Thank you very much for the courtesy of this consultation. Joshua Ellis M.D. XIN Fernandes DR: Nelda JOB#: [id number] CC:
--- NOTE | 2017-10-15 17:31 | Pulmonology Progress Note ---
Assessment/Plan Problems: (1) Intractable abdominal pain (2) History of cholecystectomy (3) Pancreatitis Assessment/Plan all reviewed symptomatic treatment f/u GI recommendations all notes and meds reviewed. Subjective ROS Limited/Unobtainable: Yes Interval Events: still feeling week Allergies: Coded Allergies: HYDROMORPHONE (Unverified Allergy, Unknown, vomitting, 10/11/17) LEVOFLOXACIN (Unverified Allergy, Unknown, Rash, 10/11/17) MEPERIDINE (Unverified Allergy, Unknown, nausea, 10/11/17) MORPHINE (Unverified Allergy, Unknown, nausea rash, 10/11/17) ACETAMINOPHEN (Verified Adverse Reaction, Intermediate, 10/14/17) abdominal irratation HYDROCODONE (Verified Adverse Reaction, Intermediate, 10/14/17) abdominal irratation Objective Last 24 Hour Vital Signs Date Time Temp Pulse Resp B/P (MAP) Pulse Ox O2 Delivery O2 Flow Rate FiO2 10/15/17 16:45 100.9 71 21 157/75 96 Room Air 100.9 10/15/17 14:04 129/68 10/15/17 13:37 102.2 102.2 10/15/17 11:54 94 Room Air 10/15/17 11:54 102.3 73 20 129/68 94 Room Air 102.3 10/15/17 08:00 99.5 67 20 146/73 95 99.5 10/15/17 04:49 163/79 10/15/17 04:00 102.9 71 18 163/79 95 Room Air 102.9 10/15/17 00:00 98.4 64 20 154/82 97 98.4 10/14/17 22:29 145/74 10/14/17 20:00 99.5 65 20 143/73 95 99.5 Intake and Output 10/14/17 10/15/17 19:00 07:00 Intake Total 435 ml 240 ml Balance 435 ml 240 ml Intake Oral 360 ml 240 ml IV Total 75 ml # Voids 3 2 Objective General Appearance: WD/WN HEENT: normocephalic, atraumatic Respiratory/Chest: chest wall non-tender, lungs clear, normal breath sounds Cardiovascular: normal peripheral pulses, normal rate Abdomen: normal bowel sounds, no organomegaly Genitourinary: normal external genitalia Extremities: no cyanosis Skin: no rash Neurologic/Psychiatric: access consultant II-XII grossly normal Laboratory Tests 10/15/17 06:21: Total Protein (PEP) [Pending], Albumin (PEP) [Pending], Globulin (PEP) [Pending] , Albumin/Globulin Ratio [Pending], [id number]-[id number] [Pending], Alpha-2- Globulins [Pending], Beta Globulins [Pending], Beta Gamma Globulin [Pending], PEP Abnormal Protein Bands [Pending], Protein Electrophoresis Interpret [Pending ] Current Medications Medications (Trade) Dose Ordered Sig/Matt Route PRN Reason Start Time Stop Time Status Last Admin Dose Admin Al Hydroxide/Mg Hydroxide (Mylanta II) 30 ml Q6H PRN ORAL dyspepsia 10/11/17 22:15 11/10/17 22:14 Aspirin (ASA) 325 mg Q6H PRN ORAL Fever/Headache/Mild Pain 10/15/17 09:00 11/14/17 08:59 10/15/17 17:27 Captopril (Capoten) 25 mg EVERY 8 HOURS ORAL 10/12/17 06:00 11/11/17 05:59 10/15/17 14:04 Clonidine HCl (Catapres Tab) 0.1 mg Q6H PRN ORAL For High Blood Pressure>160 10/12/17 07:00 11/11/17 06:59 10/15/17 04:49 Dextrose (Dextrose 50%) STAT PRN IV Hypoglycemia 10/11/17 22:15 11/10/17 22:14 Diphenhydramine HCl (Benadryl) 25 mg Q6H PRN ORAL Itching/Pruritis 10/11/17 22:15 11/10/17 22:14 Ferrous Sulfate (Feosol) 325 mg BID ORAL 10/15/17 18:00 11/14/17 17:59 10/15/17 17:27 Folic Acid (Folate) 1 mg DAILY ORAL 10/14/17 09:00 11/13/17 08:59 10/15/17 08:27 Gabapentin (Neurontin) 100 mg BEDTIME ORAL 10/14/17 21:00 11/13/17 20:59 10/14/17 20:47 Heparin Sodium (Porcine) (Heparin 5000 units/ml) 5,000 units EVERY 12 HOURS SUBQ 10/12/17 09:00 11/11/17 08:59 10/15/17 08:30 Ketorolac Tromethamine (Toradol 30mg) 15 mg Q6H PRN IV For Pain 10/12/17 13:00 10/17/17 12:59 10/14/17 18:40 Lidocaine (Lidoderm 5% PATCH) 1 patch DAILY TDERMAL 10/15/17 10:30 11/14/17 10:29 10/15/17 10:16 Lorazepam (Ativan 2mg/ml 1ml) 1 mg EVERY 4 HOURS PRN IV agitation 10/11/17 22:15 10/18/17 22:14 Methocarbamol (Robaxin) 500 mg Q8H PRN ORAL Muscle Spasm 10/14/17 19:45 11/13/17 19:44 Nitroglycerin (Ntg) 0.4 mg Q5M X 3 DOSES PRN SL Prn Chest Pain 10/11/17 22:15 11/10/17 22:14 Ondansetron HCl (Zofran) 4 mg Q6H PRN IVP Nausea & Vomiting 10/11/17 22:15 11/10/17 22:14 Pantoprazole (Protonix) 40 mg ACBREAKFAST ORAL 10/16/17 06:30 11/14/17 08:59 Piperacillin Sod/ Tazobactam Sod 3.375 gm/Dextrose 110 ml @ 27.5 mls/hr EVERY 8 HOURS IVPB 10/15/17 14:00 10/20/17 13:59 10/15/17 14:35 Polyethylene Glycol (Miralax) 17 gm HSPRN PRN ORAL Constipation 10/11/17 22:15 11/10/17 22:14 Promethazine HCl (Phenergan) 25 mg EVERY 8 HOURS PRN IV refractory nausea 10/11/17 22:15 11/10/17 22:14 Temazepam (Restoril) 15 mg HSPRN PRN ORAL Insomnia 10/11/17 22:15 10/18/17 22:14 FUENTES FLORES Oct 15, 2017 17:31
[2017-10-15 18:25] LABS: APPEARANCE,URINE CLEAR; BILIRUBIN, URINE NEGATIVE (NEGATIVE); COLOR,URINE PALE YELLOW; GLUCOSE, URINE (UA) NEGATIVE (NEGATIVE); KETONES,URINE NEGATIVE (NEGATIVE); LEUKOCYTE ESTERASE ,URINE NEGATIVE (NEGATIVE); NITRITE,URINE NEGATIVE (NEGATIVE); PH,URINE 6 (4.5-8.0); PROTEIN,URINE NEGATIVE (NEGATIVE); UROBILINOGEN,URINE NORMAL MG/DL (0.0-1.0)
[2017-10-15 20:14] VITALS: BP 146/70
[2017-10-16] VITALS: BP 161/73
--- NOTE | 2017-10-16 03:15 | Consultation ---
DATE OF CONSULTATION: 10/15/2017 "NOTE: POOR AUDIO QUALITY" HEMATOLOGY/ONCOLOGY CONSULTATION CONSULTING PHYSICIAN: Eris Barker M.D. REQUESTING PHYSICIAN: Reina Waldron M.D. REASON FOR CONSULTATION: Evaluation of thrombocytopenia and anemia. IDENTIFYING DATA: Dear Dr. Waldron, This is a pleasant 87-year-old female, a Macanese speaking female with past medical history significant for recurrent pancreatitis, history of cholecystectomy, was consulted for care, and she says that she has been followed up at [facility] with incidental finding of femoral thrombosis. She has past medical history again significant for epigastric pain, right upper quadrant, that has been radiating to the back. This is per review of the record. The patient admitted for evaluation of pain management. Apparently, the patient is noted to be with abdominal pain for several years and has been seen by GI surgeon and GI doctor, Dr. Borrero, who is also a surgeon, has been continuing to follow the patient at this time. She continues to have back pain, which has been ongoing every six months or so, has been getting Toradol as well as Tylenol, [place], Dilaudid, ephedrine, and morphine. Pain Management service consulted for further evaluation and treatment. Noted to have a fever, unknown cause with fever. Blood cultures and urine cultures pending, and MRI of thoracic spine is pending as well. I appreciate consultation of Dr. Waldron and Jose. PAST MEDICAL HISTORY: Pancreatitis. PAST SURGICAL HISTORY: Cholecystectomy. SOCIAL HISTORY: Denies any alcohol, tobacco, or illicit drug use. ALLERGIES: Tylenol, [place], Dilaudid, levofloxacin, morphine, and ephedrine. REVIEW OF SYSTEMS: CONSTITUTIONAL: No fevers, chills, or night sweats. SKIN: No rashes, bumps, or itching. HEENT: No headache, hearing or vision changes. BREASTS: No lumps, pain, or discharge. PULMONARY: No cough, sputum, or shortness of breath. GASTROINTESTINAL: No nausea, vomiting, or diarrhea. GENITOURINARY: No dysuria, frequency, or urgency. MUSCULOSKELETAL: No joint swelling, muscle pain, or trauma. PHYSICAL EXAMINATION: VITAL SIGNS: Reviewed. GENERAL: No acute distress. PULMONARY: Decreased breath sounds. CARDIOVASCULAR: Regular rate. No S3 or S4. ABDOMEN: Soft, nontender, and nondistended. EXTREMITIES: No cyanosis, swelling, or edema. LABORATORY AND DIAGNOSTIC DATA: Labs reviewed. WBC of 4.7, hemoglobin 10, hematocrit 31, and platelet count 286,000. Chemistry, BUN of 10 and creatinine 0.9. Amylase 125. Total protein 8.8, which is high and the albumin of 3.2. Coagulation panel reviewed, INR of 1. Urine culture with urine WBC 2 to 4. SPEP and UPEP ordered. ASSESSMENT AND RECOMMENDATIONS: 1. Anemia due to underlying chronic disease. Continue to closely monitor. Currently, we will send out for anemia workup. , which has been obtained shows evidence of iron deficiency. Continue the patient on iron treatment. 2. Anemia due to underlying folic acid folic acid. 3. Fever and chills, unknown cause. 4. of the back completed, which did not show any evidence of malignancy. 5. Worsening progressive pain of the lower back. The patient currently on Toradol, likely due to degenerative joint disease and thoracic spondylolysis. 6. Abdominal pain, likely secondary to recurrent pancreatitis. 7. History of cholecystectomy. 8. Femoral artery mural thrombosis. Consider use of aspirin and vascular surgeon to follow for femoral artery mural thrombosis. Begin the patient on aspirin. Consider on mural thrombosis. 9. The patient has in the past declined ERCP. 10. Deep venous thrombosis prophylaxis with heparin and begin the patient on ferrous sulfate. Eris Barker M.D. DR: SINDHU JOB#: [id number] CC:
[2017-10-16 04:00] VITALS: BP 153/70
[2017-10-16] MEDS: Piperacillin/Tazobactam 3.375 GM in D5W 110 ML IVPB SCH ×3 (05:57→21:30)
[2017-10-16] MEDS: Captopril 25mg tab ORAL SCH ×4 (05:58→21:44)
[2017-10-16 08:00] VITALS: BP 150/80
--- NOTE | 2017-10-16 08:11 | General Progress Note ---
Assessment/Plan Assessment/Plan (1) Intractable back pain (2) Thoracic Spondylosis (3) Thoracic DDD Pt will be continued on Toradol MRI of T spine pending. D/w Dr. Ellis and he concurred. Subjective Date patient seen: Oct 16, 2017 Time patient seen: 07:15 - am Allergies: Coded Allergies: HYDROMORPHONE (Unverified Allergy, Unknown, vomitting, 10/11/17) LEVOFLOXACIN (Unverified Allergy, Unknown, Rash, 10/11/17) MEPERIDINE (Unverified Allergy, Unknown, nausea, 10/11/17) MORPHINE (Unverified Allergy, Unknown, nausea rash, 10/11/17) ACETAMINOPHEN (Verified Adverse Reaction, Intermediate, 10/14/17) abdominal irratation HYDROCODONE (Verified Adverse Reaction, Intermediate, 10/14/17) abdominal irratation Subjective REVIEW OF SYSTEMS: Denies rash, fever at this time, chills, sweating, dizziness, drowsiness, blurred vision, sore throat, or change in weight. No shortness of breath, chest pain. complaining of cough. No nausea, vomiting, diarrhea, or blood in the stool or urine. No bowel or bladder incontinence. No dysuria. She is complaining of mid back pain. SUBJECTIVE: Patient is in bed and daughter at bed side. She is doing better and pain has slightly reduced. MRI of T spine pending. Heme/onc on the case. Objective Last 24 Hour Vital Signs Date Time Temp Pulse Resp B/P (MAP) Pulse Ox O2 Delivery O2 Flow Rate FiO2 10/16/17 05:58 153/70 10/16/17 04:00 98.3 76 19 153/70 92 98.3 10/16/17 00:00 99.5 63 19 161/73 97 99.5 10/15/17 21:42 99.2 99.2 10/15/17 21:37 147/81 10/15/17 20:14 101.6 66 18 146/70 93 Room Air 101.6 10/15/17 16:45 100.9 71 21 157/75 96 Room Air 100.9 10/15/17 16:45 96 Room Air 10/15/17 14:04 129/68 10/15/17 13:37 102.2 102.2 10/15/17 11:54 94 Room Air 10/15/17 11:54 102.3 73 20 129/68 94 Room Air 102.3 Intake and Output 10/15/17 10/16/17 19:00 07:00 Intake Total 410 ml 377.5 ml Output Total 200 ml Balance 210 ml 377.5 ml Intake Oral 300 ml 240 ml IV Total 110 ml 137.5 ml Output Urine Total 200 ml # Voids 5 1 Laboratory Tests 10/15/17 17:20: Urine Color Pale yellow, Urine Appearance Clear, Urine pH 6, Urine Specific Mccloud 1.010, Urine Protein Negative, Urine Glucose (UA) Negative, Urine Ketones Negative, Urine Occult Blood 4+H, Urine Nitrite Negative, Urine Bilirubin Negative, Urine Urobilinogen Normal, Urine Leukocyte Esterase Negative , Urine RBC 5-10H, Urine WBC 0-2, Urine Squamous Epithelial Cells Occasional, Urine Bacteria Occasional, Urine Total Protein [Pending], Urine Albumin (%) [ Pending], Urine Gmsmo-7-Rywlufubq (%) [Pending], Urine Qepqc-8-Ousixfrkb (%) [ Pending], Urine Beta-Globulin (%) [Pending], Urine Gamma Globulin (%) [Pending] , Ur Protein Electrophoresis M-Bernabe [Pending], Urine Protein Electrophoresis Intrp [Pending] Height (Feet): 5 Height (Inches): 6.00 Weight (Pounds): 100 Objective GENERAL: Alert, awake, and oriented. HEENT: PERRLA. NECK: Range of motion is decreased due to the patient's condition. LUNGS: Decreased breath sounds bilaterally. HEART: S1 and S2 regular. ABDOMEN: Tenderness to palpation. BACK: Range of motion is decreased in flexion and extension with tenderness to paraspinous muscles, trapezius, or rhomboid muscles. EXTREMITIES: No clubbing. Sensory is intact. NEURO: No changes. JEOVANNY GOOMDAN Oct 16, 2017 08:11
[2017-10-16] MEDS: Heparin 5000 units/ml inj SUBQ SCH ×2 (08:37→21:42)
[2017-10-16 08:55] LABS: HEMOGLOBIN 10.6 G/DL (12.0-16.0); MEAN CORPUSCULAR VOLUME 74 FL (80-99); PLATELET COUNT 186 K/UL (150-450); RED BLOOD COUNT 4.44 M/UL (4.20-5.40); RED CELL DISTRIBUTION WIDTH 14.4 % (11.6-14.8); WHITE BLOOD COUNT 5.6 K/UL (4.8-10.8)
[2017-10-16 09:08] LABS: ALANINE AMINOTRANSFERASE 20 U/L (12-78); ALBUMIN 3.2 G/DL (3.4-5.0); ALBUMIN/GLOBULIN RATIO 0.8 (1.0-2.7); ALKALINE PHOSPHATASE 78 U/L (46-116); ANION GAP 10 mmol/L (5-15); ASPARTATE AMINO TRANSFERASE 45 U/L (15-37); BILIRUBIN,TOTAL 0.2 MG/DL (0.2-1.0); BLOOD UREA NITROGEN 12 mg/dL (7-18); CALCIUM 8.6 MG/DL (8.5-10.1); CARBON DIOXIDE 25 MMOL/L (21-32); CHLORIDE 98 MMOL/L (98-107); CREATININE 1.1 MG/DL (0.55-1.30); SODIUM 134 MMOL/L (136-145)
[2017-10-16 09:13] LABS: POTASSIUM 2.6 MMOL/L (3.5-5.1)
[2017-10-16 09:27] LABS: PHOSPHORUS 2.6 MG/DL (2.5-4.9)
[2017-10-16] MEDS ORDERED: Cefepime HCl 2 GM in D5W 55 ML IVPB SCH (10:00)
--- NOTE | 2017-10-16 10:08 | Consultation ---
Consult Note Consult Note ID DIC # [id number] RIMMA CASTANEDA M.D. Oct 16, 2017 10:08
--- NOTE | 2017-10-16 11:32 | GI Progress Note ---
Assessment/Plan Problems: (1) Right flank pain ICD Codes: R10.9 - Unspecified abdominal pain SNOMED: 411348833 (2) Pancreatitis ICD Codes: K85.90 - Acute pancreatitis without necrosis or infection, unspecified SNOMED: 98391464 (3) Intractable abdominal pain ICD Codes: R10.9 - Unspecified abdominal pain SNOMED: 06928042, 866174883 (4) Back pain ICD Codes: M54.9 - Dorsalgia, unspecified SNOMED: 085580490 (5) History of cholecystectomy ICD Codes: Z98.890 - Other specified postprocedural states; Z90.49 - Acquired absence of other specified parts of digestive tract SNOMED: 81550450, 853215081 Status: stable, unchanged Status Narrative Discussed with Dr. Escoto. Assessment/Plan Abdominal U/S reviewed >> - Surgically absent gallbladder - Ectatic extrahepatic bile ducts, likely related to age and postcholecystectomy state. - Incidental finding and lower pole renal cyst CT AP reviewed >> - No acute abnormality - Extrahepatic and central intrahepatic biliary ductal dilatation, probably related to prior cholecystectomy and senescent changes - Colonic diverticulosis. 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 iron elevation folate deficiency MRI spine today ERCP refused by family members >> performed at [facility] 2011 symptomatic treatment pain mgmt OB stool r/o GI bleed monitor H&H, prn transfusions bowel regime folate ppi fu labs Subjective Subjective no abdominal pain right flank pain present Objective Last 24 Hour Vital Signs Date Time Temp Pulse Resp B/P (MAP) Pulse Ox O2 Delivery O2 Flow Rate FiO2 10/16/17 08:00 100.0 78 19 150/80 95 100.0 10/16/17 05:58 153/70 10/16/17 04:00 98.3 76 19 153/70 92 98.3 10/16/17 00:00 99.5 63 19 161/73 97 99.5 10/15/17 21:42 99.2 99.2 10/15/17 21:37 147/81 10/15/17 20:14 101.6 66 18 146/70 93 Room Air 101.6 10/15/17 16:45 100.9 71 21 157/75 96 Room Air 100.9 10/15/17 16:45 96 Room Air 10/15/17 14:04 129/68 10/15/17 13:37 102.2 102.2 10/15/17 11:54 94 Room Air 10/15/17 11:54 102.3 73 20 129/68 94 Room Air 102.3 Intake and Output 10/15/17 10/16/17 19:00 07:00 Intake Total 410 ml 377.5 ml Output Total 200 ml Balance 210 ml 377.5 ml Intake Oral 300 ml 240 ml IV Total 110 ml 137.5 ml Output Urine Total 200 ml # Voids 5 1 Laboratory Tests Test 10/15/17 17:20 10/16/17 07:05 Urine Color Pale yellow Urine Appearance Clear Urine pH 6 (4.5-8.0) Urine Specific [place] 1.010 (1.005-1.035) Urine Protein Negative (NEGATIVE) Urine Glucose (UA) Negative (NEGATIVE) Urine Ketones Negative (NEGATIVE) Urine Occult Blood 4+ (NEGATIVE) H Urine Nitrite Negative (NEGATIVE) Urine Bilirubin Negative (NEGATIVE) Urine Urobilinogen Normal MG/DL (0.0-1.0) Urine Leukocyte Esterase Negative (NEGATIVE) Urine RBC 5-10 /HPF (0 - 2) H Urine WBC 0-2 /HPF (0 - 2) Urine Squamous Epithelial Cells Occasional /LPF Urine Bacteria Occasional /HPF (NONE) Urine Total Protein Pending Urine Albumin (%) Pending Urine Zmolf-4-Bmelmqojp (%) Pending Urine Jdras-4-Uioboshaa (%) Pending Urine Beta-Globulin (%) Pending Urine Gamma Globulin (%) Pending Ur Protein Electrophoresis M-Brenabe Pending Urine Protein Electrophoresis Intrp Pending White Blood Count 5.6 K/UL (4.8-10.8) Red Blood Count 4.44 M/UL (4.20-5.40) Hemoglobin 10.6 G/DL (12.0-16.0) L Hematocrit 33.0 % (37.0-47.0) L Mean Corpuscular Volume 74 FL (80-99) L Mean Corpuscular Hemoglobin 23.8 PG (27.0-31.0) L Mean Corpuscular Hemoglobin Concent 32.1 G/DL (32.0-36.0) Red Cell Distribution Width 14.4 % (11.6-14.8) Platelet Count 186 K/UL (150-450) Mean Platelet Volume 6.1 FL (6.5-10.1) L Neutrophils (%) (Auto) % (45.0-75.0) Lymphocytes (%) (Auto) % (20.0-45.0) Monocytes (%) (Auto) % (1.0-10.0) Eosinophils (%) (Auto) % (0.0-3.0) Basophils (%) (Auto) % (0.0-2.0) Differential Total Cells Counted 100 Neutrophils % (Manual) 86 % (45-75) H Lymphocytes % (Manual) 8 % (20-45) L Monocytes % (Manual) 6 % (1-10) Eosinophils % (Manual) 0 % (0-3) Basophils % (Manual) 0 % (0-2) Band Neutrophils 0 % (0-8) Platelet Estimate Adequate Platelet Morphology Normal Hypochromasia 1+ Anisocytosis 1+ Microcytosis 1+ Erythrocyte Sedimentation Rate 34 MM/HR (0-42) Sodium Level 134 MMOL/L (136-145) L Potassium Level 2.6 MMOL/L (3.5-5.1) *L Chloride Level 98 MMOL/L (98-107) Carbon Dioxide Level 25 MMOL/L (21-32) Anion Gap 10 mmol/L (5-15) Blood Urea Nitrogen 12 mg/dL (7-18) Creatinine 1.1 MG/DL (0.55-1.30) Estimat Glomerular Filtration Rate mL/min (>60) Glucose Level 112 MG/DL (74-106) H Calcium Level 8.6 MG/DL (8.5-10.1) Phosphorus Level 2.6 MG/DL (2.5-4.9) Magnesium Level 1.8 MG/DL (1.8-2.4) Total Bilirubin 0.2 MG/DL (0.2-1.0) Aspartate Amino Transf (AST/SGOT) 45 U/L (15-37) H Alanine Aminotransferase (ALT/SGPT) 20 U/L (12-78) Alkaline Phosphatase 78 U/L (46-116) Troponin I 0.041 ng/mL (0.000-0.056) C-Reactive Protein, Quantitative 4.1 mg/dL (0.00-0.90) H Total Protein 7.0 G/DL (6.4-8.2) Albumin 3.2 G/DL (3.4-5.0) L Globulin 3.8 g/dL Albumin/Globulin Ratio 0.8 (1.0-2.7) L Height (Feet): 5 Height (Inches): 6.00 Weight (Pounds): 100 General Appearance: WD/WN, no apparent distress, alert, thin Cardiovascular: normal rate Respiratory/Chest: normal breath sounds, no respiratory distress Abdominal Exam: normal bowel sounds, non tender, soft Extremities: normal range of motion, non-tender Odalys Tavarez N.P. Oct 16, 2017 11:32
[2017-10-16 12:00] VITALS: BP 127/62
--- NOTE | 2017-10-16 12:59 | Diagnostic Imaging Report ---
Indication: Dyspnea Comparison: None A single view chest radiograph was obtained. Findings: The heart is enlarged. Aorta is ectatic and moderately calcified. Bones are osteopenic. Lungs are essentially clear. IMPRESSION: No acute finding
[2017-10-16] MEDS: Ketorolac 30mg Inj IV PRN (13:38)
--- NOTE | 2017-10-16 16:00 | Consultation ---
DATE OF CONSULTATION: 10/16/2017 INFECTIOUS DISEASES CONSULTATION CONSULTING PHYSICIAN: Everett Massey M.D. REFERRING PHYSICIAN: Reina Waldron M.D. REASON FOR CONSULTATION: Evaluation of the patient for fever. HISTORY OF PRESENT ILLNESS: The patient is an 87-year-old female, who was admitted five days ago with abdominal pain/epigastric pain. Also she has been complaining of right upper back pain. CT scan of the abdomen showed some biliary dilatation that appears to be due to prior cholecystectomy. There was no obvious obstruction on workups. Family refused ERCP. The patient developed fever during hospitalization. An Infectious Disease consultation has been requested for further evaluation of the patient and antibiotic management. PAST MEDICAL HISTORY: 1. Hypertension. 2. History of cholecystectomy. 3. Anemia. 4. History of chronic upper back pain that has worsened in the last seven days. MEDICATIONS: Currently off of antibiotics. ALLERGIES: Multiple including Levaquin, hydrocodone, hydromorphone, acetaminophen, and meperidine. SOCIAL HISTORY: The patient lives at home with family. REVIEW OF SYSTEMS: HEENT: No recent change in vision or hearing. PULMONARY: No cough or shortness of breath. CARDIOVASCULAR: No chest pain or palpitations. GASTROINTESTINAL: Abdomen, as mentioned. GENITOURINARY: No dysuria. MUSCULOSKELETAL: The patient has back pain, pelvic pain, and shoulder pain and has received some injections in the past. PHYSICAL EXAMINATION: VITAL SIGNS: Temperature 102.3, pulse 86, respiratory rate 18, and blood pressure 150/80. HEENT: No pale conjunctivae. No icterus. NECK: No lymphadenopathy. CHEST: Clear. HEART: S1 and S2. ABDOMEN: Soft. EXTREMITIES: No cyanosis at this time. NEUROLOGIC: Awake. BACK: The patient has tenderness to the upper thoracic vertebra. SKIN: No rash. LABORATORY DATA: White blood cells 5.6, hemoglobin 10, platelets 186. UA unremarkable. BUN 12 and creatinine 1.1. ALT, AST, and alkaline phosphatase were unremarkable. Amylase 125, lipase 207. Urine culture from 10/15/2017 is growing low counts of mixed organisms. MRI of the abdomen, extra and central intrahepatic biliary dilatation, probably due to prior cholecystectomy. ASSESSMENT: The patient is an 87-year-old female with: 1. Fever, onset in the hospital. 2. Rule out bacteremia. 3. Rule out influenza. 4. Severe upper thoracic vertebral tenderness, rule out diskitis. 5. Doubt cholangitis in view of lack of obstruction and history of cholecystectomy. PLAN: 1. We will start the patient on empiric cefepime. 2. Monitor CBC. 3. Monitor BMP. 4. Monitor blood culture. 5. Rapid influenza test. 6. MRI of the spine. 7. Monitor chest x-ray. 8. Based on the patient's clinical course and labs, we will do further recommendation. Thank you, Dr. Waldron, for allowing me to participate in the care of this patient. I will follow the patient with you during this hospitalization. Everett Massey M.D. DR: RANDALL JOB#: [id number] CC:
--- NOTE | 2017-10-16 16:04 | Pulmonology Progress Note ---
Assessment/Plan Problems: (1) Intractable abdominal pain (2) History of cholecystectomy (3) Pancreatitis Assessment/Plan less fever daughter refusing K supplement MRI of spine done symptomatic treatment Subjective ROS Limited/Unobtainable: No Constitutional: Reports: no symptoms HEENT: Repors: no symptoms Respiratory: Reports: no symptoms Allergies: Coded Allergies: HYDROMORPHONE (Unverified Allergy, Unknown, vomitting, 10/11/17) LEVOFLOXACIN (Unverified Allergy, Unknown, Rash, 10/11/17) MEPERIDINE (Unverified Allergy, Unknown, nausea, 10/11/17) MORPHINE (Unverified Allergy, Unknown, nausea rash, 10/11/17) ACETAMINOPHEN (Verified Adverse Reaction, Intermediate, 10/14/17) abdominal irratation HYDROCODONE (Verified Adverse Reaction, Intermediate, 10/14/17) abdominal irratation Objective Last 24 Hour Vital Signs Date Time Temp Pulse Resp B/P (MAP) Pulse Ox O2 Delivery O2 Flow Rate FiO2 10/16/17 12:00 98.0 63 18 127/62 97 98.0 10/16/17 08:00 100.0 78 19 150/80 95 100.0 10/16/17 05:58 153/70 10/16/17 04:00 98.3 76 19 153/70 92 98.3 10/16/17 00:00 99.5 63 19 161/73 97 99.5 10/15/17 21:42 99.2 99.2 10/15/17 21:37 147/81 10/15/17 20:14 101.6 66 18 146/70 93 Room Air 101.6 10/15/17 16:45 100.9 71 21 157/75 96 Room Air 100.9 10/15/17 16:45 96 Room Air Intake and Output 10/15/17 10/16/17 19:00 07:00 Intake Total 410 ml 377.5 ml Output Total 200 ml Balance 210 ml 377.5 ml Intake Oral 300 ml 240 ml IV Total 110 ml 137.5 ml Output Urine Total 200 ml # Voids 5 1 Objective General Appearance: WD/WN HEENT: normocephalic, atraumatic Respiratory/Chest: chest wall non-tender, lungs clear, normal breath sounds Cardiovascular: normal peripheral pulses, normal rate Abdomen: normal bowel sounds, no organomegaly Genitourinary: normal external genitalia Extremities: no cyanosis Skin: no rash 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 grossly normal Microbiology Date/Time Source Procedure Growth Status 10/15/17 11:05 Urine,Clean Catch Urine Culture - Preliminary Mixed Gram Positive Organism Resulted Laboratory Tests 10/15/17 17:20: Urine Color Pale yellow, Urine Appearance Clear, Urine pH 6, Urine Specific [place] 1.010, Urine Protein Negative, Urine Glucose (UA) Negative, Urine Ketones Negative, Urine Occult Blood 4+H, Urine Nitrite Negative, Urine Bilirubin Negative, Urine Urobilinogen Normal, Urine Leukocyte Esterase Negative , Urine RBC 5-10H, Urine WBC 0-2, Urine Squamous Epithelial Cells Occasional, Urine Bacteria Occasional, Urine Total Protein [Pending], Urine Albumin (%) [ Pending], Urine Hlqkx-8-Xksljckvm (%) [Pending], Urine Mljba-0-Fzgtowfzb (%) [ Pending], Urine Beta-Globulin (%) [Pending], Urine Gamma Globulin (%) [Pending] , Ur Protein Electrophoresis M-Bernabe [Pending], Urine Protein Electrophoresis Intrp [Pending] 10/16/17 07:05: White Blood Count 5.6, Red Blood Count 4.44, Hemoglobin 10.6L, Hematocrit 33.0L , Mean Corpuscular Volume 74L, Mean Corpuscular Hemoglobin 23.8L, Mean Corpuscular Hemoglobin Concent 32.1, Red Cell Distribution Width 14.4, Platelet Count 186, Mean Platelet Volume 6.1L, Neutrophils (%) (Auto) , Lymphocytes (%) ( Auto) , Monocytes (%) (Auto) , Eosinophils (%) (Auto) , Basophils (%) (Auto) , Differential Total Cells Counted 100, Neutrophils % (Manual) 86H, Lymphocytes % (Manual) 8L, Monocytes % (Manual) 6, Eosinophils % (Manual) 0, Basophils % ( Manual) 0, Band Neutrophils 0, Platelet Estimate Adequate, Platelet Morphology Normal, Hypochromasia 1+, Anisocytosis 1+, Microcytosis 1+, Erythrocyte Sedimentation Rate 34, Sodium Level 134L, Potassium Level 2.6*L, Chloride Level 98, Carbon Dioxide Level 25, Anion Gap 10, Blood Urea Nitrogen 12, Creatinine 1.1, Estimat Glomerular Filtration Rate , Glucose Level 112H, Calcium Level 8.6 , Phosphorus Level 2.6, Magnesium Level 1.8, Total Bilirubin 0.2, Aspartate Amino Transf (AST/SGOT) 45H, Alanine Aminotransferase (ALT/SGPT) 20, Alkaline Phosphatase 78, Troponin I 0.041, C-Reactive Protein, Quantitative 4.1H, Total Protein 7.0, Albumin 3.2L, Globulin 3.8, Albumin/Globulin Ratio 0.8L Current Medications Medications (Trade) Dose Ordered Sig/Matt Route PRN Reason Start Time Stop Time Status Last Admin Dose Admin Al Hydroxide/Mg Hydroxide (Mylanta II) 30 ml Q6H PRN ORAL dyspepsia 10/11/17 22:15 11/10/17 22:14 Aspirin (ASA) 325 mg Q6H PRN ORAL Fever/Headache/Mild Pain 10/15/17 09:00 11/14/17 08:59 10/16/17 08:38 Captopril (Capoten) 25 mg EVERY 8 HOURS ORAL 10/12/17 06:00 11/11/17 05:59 10/16/17 05:58 Clonidine HCl (Catapres Tab) 0.1 mg Q6H PRN ORAL For High Blood Pressure>160 10/12/17 07:00 11/11/17 06:59 10/15/17 04:49 Dextrose (Dextrose 50%) STAT PRN IV Hypoglycemia 10/11/17 22:15 11/10/17 22:14 Diphenhydramine HCl (Benadryl) 25 mg Q6H PRN ORAL Itching/Pruritis 10/11/17 22:15 11/10/17 22:14 Ferrous Sulfate (Feosol) 325 mg BID ORAL 10/15/17 18:00 11/14/17 17:59 10/16/17 08:32 Folic Acid (Folate) 1 mg DAILY ORAL 10/14/17 09:00 11/13/17 08:59 10/16/17 08:32 Gabapentin (Neurontin) 100 mg BEDTIME ORAL 10/14/17 21:00 11/13/17 20:59 10/15/17 20:21 Heparin Sodium (Porcine) (Heparin 5000 units/ml) 5,000 units EVERY 12 HOURS SUBQ 10/12/17 09:00 11/11/17 08:59 10/16/17 08:37 Ketorolac Tromethamine (Toradol 30mg) 15 mg Q6H PRN IV For Pain 10/12/17 13:00 10/17/17 12:59 10/16/17 13:38 Lidocaine (Lidoderm 5% PATCH) 1 patch DAILY TDERMAL 10/15/17 10:30 11/14/17 10:29 10/16/17 08:33 Lorazepam (Ativan 2mg/ml 1ml) 1 mg EVERY 4 HOURS PRN IV agitation 10/11/17 22:15 10/18/17 22:14 Methocarbamol (Robaxin) 500 mg Q8H PRN ORAL Muscle Spasm 10/14/17 19:45 11/13/17 19:44 Nitroglycerin (Ntg) 0.4 mg Q5M X 3 DOSES PRN SL Prn Chest Pain 10/11/17 22:15 11/10/17 22:14 Ondansetron HCl (Zofran) 4 mg Q6H PRN IVP Nausea & Vomiting 10/11/17 22:15 11/10/17 22:14 Oseltamivir Phosphate (Tamiflu) 30 mg QHS ORAL 10/15/17 19:15 10/20/17 19:14 10/15/17 20:21 Pantoprazole (Protonix) 40 mg ACBREAKFAST ORAL 10/16/17 06:30 11/14/17 08:59 10/16/17 05:57 Piperacillin Sod/ Tazobactam Sod 3.375 gm/Dextrose 110 ml @ 27.5 mls/hr EVERY 8 HOURS IVPB 10/15/17 14:00 10/20/17 13:59 10/16/17 15:42 Polyethylene Glycol (Miralax) 17 gm HSPRN PRN ORAL Constipation 10/11/17 22:15 11/10/17 22:14 Potassium Chloride (K-Dur) 40 meq TWICE A DAY ORAL 10/16/17 10:30 10/16/17 23:00 Promethazine HCl (Phenergan) 25 mg EVERY 8 HOURS PRN IV refractory nausea 10/11/17 22:15 11/10/17 22:14 Temazepam (Restoril) 15 mg HSPRN PRN ORAL Insomnia 10/11/17 22:15 10/18/17 22:14 FUENTES FLORES Oct 16, 2017 16:04
[2017-10-16 16:15] VITALS: BP 159/78
--- NOTE | 2017-10-16 16:46 | Diagnostic Imaging Report ---
Indication: Back pain Technique: MRI examination of the thoracic spine was performed in a 1.5 Rosa magnet. Sequences obtained include sagittal and axial T1 and T2 fast spin echo, and sagittal STIR. Pre/Post gadolinium axial and sagittal T1 FSE w/ fat saturation obtained. Comparison: none Findings: Bone marrow signal and alignment are normal. There is no evidence of spondylodiscitis, epidural or other abnormal fluid collections or paravertebral/paraspinous soft tissue swelling or edema. Spinal cord appears normal. There is no compression of the cord or nerve roots. There is no canal or foraminal narrowing. There is incidental posterior vertebral body lesion at T10. This is likely a hemangioma. Trace basilar pleural effusions are incidentally noted. Aorta is ectatic. Biliary ducts within the liver appear prominent. IMPRESSION: No evidence of spondylodiscitis. Other incidental findings as above
[2017-10-16 20:00] VITALS: BP 131/69
--- NOTE | 2017-10-16 23:49 | General Progress Note ---
Assessment/Plan Assessment/Plan 1. Anemia due to underlying chronic disease. -->Continue to closely monitor. --> Anemia workup completed. --> Iron elevated at 196, to discontinue iron supplement. --> TIBC 309, % sat 63, Vit B12 303, Folate 7.2, Ferritin 37. --> Transfuse if hgb <7 2. Anemia due to underlying folic acid --> Folic acid 7.3. To begin on folic acid. 3. Fever and chills, unknown cause. 4. Imaging of the back completed, which did not show any evidence of malignancy. 5. Worsening progressive pain of the lower back. 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 --> S/P MRI t spine - no evidence of spondylodiscitis. 6. Abdominal pain, likely secondary to recurrent pancreatitis. 7. History of cholecystectomy. 8. Femoral artery mural thrombosis. Consider use of aspirin and vascular surgeon to follow for femoral artery mural thrombosis. --> Begin the patient on aspirin. Consider on mural thrombosis. 9. The patient has in the past declined ERCP. 10. Deep venous thrombosis prophylaxis with heparin and begin the patient on ferrous sulfate. Subjective Date patient seen: Oct 16, 2017 Constitutional: Denies: no symptoms, chills, diaphoresis, fever, malaise, weakness, other HEENT: Denies: no symptoms, eye pain, blurred vision, tearing, double vision, ear pain, ear discharge, nose pain, nose congestion, throat pain, throat swelling, mouth pain, mouth swelling, other Cardiovascular: Denies: no symptoms, chest pain, edema, irregular heart rate, lightheadedness, palpitations, syncope, other Respiratory: Denies: no symptoms, cough, orthopnea, shortness of breath, SOB with excertion, SOB at rest, sputum, stridor, wheezing, other Gastrointestinal/Abdominal: Denies: no symptoms, abdomen distended, abdominal pain, black stools, tarry stools, blood in stool, constipated, diarrhea, difficulty swallowing, nausea, poor appetite, poor fluid intake, rectal bleeding , vomiting, other Genitourinary: Denies: no symptoms, burning, discharge, frequency, flank pain, hematuria, incontinence, pain, urgency, other Neurologic/Psychiatric: Denies: no symptoms, anxiety, depressed, emotional problems, headache, numbness, paresthesia, pre-existing deficit, seizure, tingling, tremors, weakness, other Hematologic/Lymphatic: Reports: anemia Allergies: Coded Allergies: HYDROMORPHONE (Unverified Allergy, Unknown, vomitting, 10/11/17) LEVOFLOXACIN (Unverified Allergy, Unknown, Rash, 10/11/17) MEPERIDINE (Unverified Allergy, Unknown, nausea, 10/11/17) MORPHINE (Unverified Allergy, Unknown, nausea rash, 10/11/17) ACETAMINOPHEN (Verified Adverse Reaction, Intermediate, 10/14/17) abdominal irratation HYDROCODONE (Verified Adverse Reaction, Intermediate, 10/14/17) abdominal irratation Subjective On pain control. S/P MRI spine. On anticoagulation Objective Last 24 Hour Vital Signs Date Time Temp Pulse Resp B/P (MAP) Pulse Ox O2 Delivery O2 Flow Rate FiO2 10/16/17 21:44 131/69 10/16/17 20:00 97.6 60 20 131/69 94 97.6 10/16/17 16:40 159/78 10/16/17 16:15 97.7 53 18 159/78 96 Room Air 97.7 10/16/17 12:00 98.0 63 18 127/62 97 98.0 10/16/17 08:00 100.0 78 19 150/80 95 100.0 10/16/17 05:58 153/70 10/16/17 04:00 98.3 76 19 153/70 92 98.3 10/16/17 00:00 99.5 63 19 161/73 97 99.5 Intake and Output 10/15/17 10/16/17 19:00 07:00 Intake Total 410 ml 377.5 ml Output Total 200 ml Balance 210 ml 377.5 ml Intake Oral 300 ml 240 ml IV Total 110 ml 137.5 ml Output Urine Total 200 ml # Voids 5 1 Laboratory Tests 10/16/17 07:05: White Blood Count 5.6, Red Blood Count 4.44, Hemoglobin 10.6L, Hematocrit 33.0L , Mean Corpuscular Volume 74L, Mean Corpuscular Hemoglobin 23.8L, Mean Corpuscular Hemoglobin Concent 32.1, Red Cell Distribution Width 14.4, Platelet Count 186, Mean Platelet Volume 6.1L, Neutrophils (%) (Auto) , Lymphocytes (%) ( Auto) , Monocytes (%) (Auto) , Eosinophils (%) (Auto) , Basophils (%) (Auto) , Differential Total Cells Counted 100, Neutrophils % (Manual) 86H, Lymphocytes % (Manual) 8L, Monocytes % (Manual) 6, Eosinophils % (Manual) 0, Basophils % ( Manual) 0, Band Neutrophils 0, Platelet Estimate Adequate, Platelet Morphology Normal, Hypochromasia 1+, Anisocytosis 1+, Microcytosis 1+, Erythrocyte Sedimentation Rate 34, Sodium Level 134L, Potassium Level 2.6*L, Chloride Level 98, Carbon Dioxide Level 25, Anion Gap 10, Blood Urea Nitrogen 12, Creatinine 1.1, Estimat Glomerular Filtration Rate , Glucose Level 112H, Calcium Level 8.6 , Phosphorus Level 2.6, Magnesium Level 1.8, Total Bilirubin 0.2, Aspartate Amino Transf (AST/SGOT) 45H, Alanine Aminotransferase (ALT/SGPT) 20, Alkaline Phosphatase 78, Troponin I 0.041, C-Reactive Protein, Quantitative 4.1H, Total Protein 7.0, Albumin 3.2L, Globulin 3.8, Albumin/Globulin Ratio 0.8L Height (Feet): 5 Height (Inches): 6.00 Weight (Pounds): 100 General Appearance: confused Respiratory/Chest: decreased breath sounds Abdomen: non tender, soft Edema: trace edema Skin: warm/dry Eris Barker Oct 16, 2017 23:49
[2017-10-17] VITALS: BP 161/70
[2017-10-17] MEDS: Captopril 25mg tab ORAL SCH ×3 (00:09→13:18)
[2017-10-17 04:00] VITALS: BP 169/79
[2017-10-17] MEDS: Piperacillin/Tazobactam 3.375 GM in D5W 110 ML IVPB SCH (05:36)
[2017-10-17 06:54] LABS: HEMATOCRIT 32.8 % (37.0-47.0); HEMOGLOBIN 10.7 G/DL (12.0-16.0); MEAN CORPUSCULAR VOLUME 74 FL (80-99); PLATELET COUNT 179 K/UL (150-450); RED BLOOD COUNT 4.43 M/UL (4.20-5.40); RED CELL DISTRIBUTION WIDTH 14.5 % (11.6-14.8); WHITE BLOOD COUNT 2.7 K/UL (4.8-10.8)
[2017-10-17 07:29] LABS: ALANINE AMINOTRANSFERASE 20 U/L (12-78); ALBUMIN 2.9 G/DL (3.4-5.0); ALBUMIN/GLOBULIN RATIO 0.7 (1.0-2.7); ALKALINE PHOSPHATASE 69 U/L (46-116); ANION GAP 11 mmol/L (5-15); ASPARTATE AMINO TRANSFERASE 40 U/L (15-37); BILIRUBIN,TOTAL 0.2 MG/DL (0.2-1.0); BLOOD UREA NITROGEN 12 mg/dL (7-18); CALCIUM 8.6 MG/DL (8.5-10.1); CARBON DIOXIDE 25 MMOL/L (21-32); CHLORIDE 98 MMOL/L (98-107); CREATININE 1.2 MG/DL (0.55-1.30); SODIUM 134 MMOL/L (136-145)
[2017-10-17 07:34] LABS: POTASSIUM 2.7 MMOL/L (3.5-5.1)
[2017-10-17 08:00] VITALS: BP 136/69
--- NOTE | 2017-10-17 08:25 | Infectious Diseases Prog Note ---
Assessment/Plan Assessment/Plan A: The patient is an 87-year-old female, ASSESSMENT: The patient is an 87-year-old female with: Leukopenia Fever, onset in the hospital. Rule out bacteremia. Rule out influenza. Doubt cholangitis in view of lack of obstruction and history of cholecystectomy. LBP: MRI : No evidence of spondylodiscitis. mild pancreatitis MRI of the abdomen: Extra and central intrahepatic biliary dilatation, probably due to prior cholecystectomy. 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 Monitor blood culture. Rapid influenza test. Monitor chest x-ray. Subjective Allergies: Coded Allergies: HYDROMORPHONE (Unverified Allergy, Unknown, vomitting, 10/11/17) LEVOFLOXACIN (Unverified Allergy, Unknown, Rash, 10/11/17) MEPERIDINE (Unverified Allergy, Unknown, nausea, 10/11/17) MORPHINE (Unverified Allergy, Unknown, nausea rash, 10/11/17) ACETAMINOPHEN (Verified Adverse Reaction, Intermediate, 10/14/17) abdominal irratation HYDROCODONE (Verified Adverse Reaction, Intermediate, 10/14/17) abdominal irratation Subjective Afebrile Objective Vital Signs Last 24 Hour Vital Signs Date Time Temp Pulse Resp B/P (MAP) Pulse Ox O2 Delivery O2 Flow Rate FiO2 10/17/17 04:00 98.6 59 20 169/79 96 98.6 10/17/17 00:09 161/70 10/17/17 00:00 97.5 53 18 161/70 96 97.5 10/16/17 21:44 131/69 10/16/17 20:00 97.6 60 20 131/69 94 97.6 10/16/17 16:40 159/78 10/16/17 16:15 97.7 53 18 159/78 96 Room Air 97.7 10/16/17 12:00 98.0 63 18 127/62 97 98.0 Height (Feet): 5 Height (Inches): 6.00 Weight (Pounds): 100 HEENT: anicteric Respiratory/Chest: no respiratory distress Cardiovascular: regularly irregular Abdomen: no organomegaly Microbiology Date/Time Source Procedure Growth Status 10/15/17 11:40 Blood Blood Culture - Preliminary NO GROWTH AFTER 24 HOURS Resulted 10/15/17 11:05 Urine,Clean Catch Urine Culture - Final Mixed Gram Positive Organism Complete Laboratory Tests Test 10/17/17 05:10 White Blood Count 2.7 K/UL (4.8-10.8) #L Red Blood Count 4.43 M/UL (4.20-5.40) Hemoglobin 10.7 G/DL (12.0-16.0) L Hematocrit 32.8 % (37.0-47.0) L Mean Corpuscular Volume 74 FL (80-99) L Mean Corpuscular Hemoglobin 24.1 PG (27.0-31.0) L Mean Corpuscular Hemoglobin Concent 32.6 G/DL (32.0-36.0) Red Cell Distribution Width 14.5 % (11.6-14.8) Platelet Count 179 K/UL (150-450) Mean Platelet Volume 7.0 FL (6.5-10.1) Neutrophils (%) (Auto) % (45.0-75.0) Lymphocytes (%) (Auto) % (20.0-45.0) Monocytes (%) (Auto) % (1.0-10.0) Eosinophils (%) (Auto) % (0.0-3.0) Basophils (%) (Auto) % (0.0-2.0) Neutrophils % (Manual) Pending Lymphocytes % (Manual) Pending Platelet Estimate Pending Platelet Morphology Pending Sodium Level 134 MMOL/L (136-145) L Potassium Level 2.7 MMOL/L (3.5-5.1) *L Chloride Level 98 MMOL/L (98-107) Carbon Dioxide Level 25 MMOL/L (21-32) Anion Gap 11 mmol/L (5-15) Blood Urea Nitrogen 12 mg/dL (7-18) Creatinine 1.2 MG/DL (0.55-1.30) Estimat Glomerular Filtration Rate mL/min (>60) Glucose Level 87 MG/DL (74-106) Calcium Level 8.6 MG/DL (8.5-10.1) Total Bilirubin 0.2 MG/DL (0.2-1.0) Aspartate Amino Transf (AST/SGOT) 40 U/L (15-37) H Alanine Aminotransferase (ALT/SGPT) 20 U/L (12-78) Alkaline Phosphatase 69 U/L (46-116) Total Protein 6.8 G/DL (6.4-8.2) Albumin 2.9 G/DL (3.4-5.0) L Globulin 3.9 g/dL Albumin/Globulin Ratio 0.7 (1.0-2.7) L Current Medications Medications (Trade) Dose Ordered Sig/Matt Route PRN Reason Start Time Stop Time Status Last Admin Dose Admin Al Hydroxide/Mg Hydroxide (Mylanta II) 30 ml Q6H PRN ORAL dyspepsia 10/11/17 22:15 11/10/17 22:14 Aspirin (ASA) 325 mg Q6H PRN ORAL Fever/Headache/Mild Pain 10/15/17 09:00 11/14/17 08:59 10/16/17 08:38 Captopril (Capoten) 25 mg EVERY 8 HOURS ORAL 10/17/17 08:00 11/16/17 07:59 Clonidine HCl (Catapres Tab) 0.1 mg Q6H PRN ORAL For High Blood Pressure>160 10/12/17 07:00 11/11/17 06:59 10/15/17 04:49 Dextrose (Dextrose 50%) STAT PRN IV Hypoglycemia 10/11/17 22:15 11/10/17 22:14 Diphenhydramine HCl (Benadryl) 25 mg Q6H PRN ORAL Itching/Pruritis 10/11/17 22:15 11/10/17 22:14 Ferrous Sulfate (Feosol) 325 mg BID ORAL 10/15/17 18:00 11/14/17 17:59 10/16/17 08:32 Folic Acid (Folate) 1 mg DAILY ORAL 10/14/17 09:00 11/13/17 08:59 10/16/17 08:32 Gabapentin (Neurontin) 100 mg BEDTIME ORAL 10/14/17 21:00 11/13/17 20:59 10/16/17 21:27 Heparin Sodium (Porcine) (Heparin 5000 units/ml) 5,000 units EVERY 12 HOURS SUBQ 10/12/17 09:00 11/11/17 08:59 10/16/17 21:42 Ketorolac Tromethamine (Toradol 30mg) 15 mg Q6H PRN IV For Pain 10/12/17 13:00 10/17/17 12:59 10/16/17 13:38 Lidocaine (Lidoderm 5% PATCH) 1 patch DAILY TDERMAL 10/15/17 10:30 11/14/17 10:29 10/16/17 08:33 Lorazepam (Ativan 2mg/ml 1ml) 1 mg EVERY 4 HOURS PRN IV agitation 10/11/17 22:15 10/18/17 22:14 Methocarbamol (Robaxin) 500 mg Q8H PRN ORAL Muscle Spasm 10/14/17 19:45 11/13/17 19:44 Nitroglycerin (Ntg) 0.4 mg Q5M X 3 DOSES PRN SL Prn Chest Pain 10/11/17 22:15 11/10/17 22:14 Ondansetron HCl (Zofran) 4 mg Q6H PRN IVP Nausea & Vomiting 10/11/17 22:15 11/10/17 22:14 Oseltamivir Phosphate (Tamiflu) 30 mg QHS ORAL 10/15/17 19:15 10/20/17 19:14 10/16/17 21:28 Pantoprazole (Protonix) 40 mg ACBREAKFAST ORAL 10/16/17 06:30 11/14/17 08:59 10/17/17 05:36 Piperacillin Sod/ Tazobactam Sod 3.375 gm/Dextrose 110 ml @ 27.5 mls/hr EVERY 8 HOURS IVPB 10/15/17 14:00 10/20/17 13:59 10/17/17 05:36 Polyethylene Glycol (Miralax) 17 gm HSPRN PRN ORAL Constipation 10/11/17 22:15 11/10/17 22:14 Promethazine HCl (Phenergan) 25 mg EVERY 8 HOURS PRN IV refractory nausea 10/11/17 22:15 11/10/17 22:14 Temazepam (Restoril) 15 mg HSPRN PRN ORAL Insomnia 10/11/17 22:15 10/18/17 22:14 RIMMA CASTANEDA M.D. Oct 17, 2017 08:25
--- NOTE | 2017-10-17 08:50 | General Progress Note ---
Assessment/Plan Assessment/Plan (1) Intractable back pain (2) Thoracic Spondylosis (3) Thoracic DDD Pt will be continued on Toradol D/w Dr. Ellis and he concurred. Subjective Date patient seen: Oct 17, 2017 Time patient seen: 07:00 - am Allergies: Coded Allergies: HYDROMORPHONE (Unverified Allergy, Unknown, vomitting, 10/11/17) LEVOFLOXACIN (Unverified Allergy, Unknown, Rash, 10/11/17) MEPERIDINE (Unverified Allergy, Unknown, nausea, 10/11/17) MORPHINE (Unverified Allergy, Unknown, nausea rash, 10/11/17) ACETAMINOPHEN (Verified Adverse Reaction, Intermediate, 10/14/17) abdominal irratation HYDROCODONE (Verified Adverse Reaction, Intermediate, 10/14/17) abdominal irratation Subjective REVIEW OF SYSTEMS: Denies rash, fever at this time, chills, sweating, dizziness, drowsiness, blurred vision, sore throat, or change in weight. No shortness of breath, chest pain. complaining of cough. No nausea, vomiting, diarrhea, or blood in the stool or urine. No bowel or bladder incontinence. No dysuria. She is complaining of mid back pain. SUBJECTIVE: Patient is in bed no signs of pain or distress. MRI was reviewed. Objective Last 24 Hour Vital Signs Date Time Temp Pulse Resp B/P (MAP) Pulse Ox O2 Delivery O2 Flow Rate FiO2 10/17/17 04:00 98.6 59 20 169/79 96 98.6 10/17/17 00:09 161/70 10/17/17 00:00 97.5 53 18 161/70 96 97.5 10/16/17 21:44 131/69 10/16/17 20:00 97.6 60 20 131/69 94 97.6 10/16/17 16:40 159/78 10/16/17 16:15 97.7 53 18 159/78 96 Room Air 97.7 10/16/17 12:00 98.0 63 18 127/62 97 98.0 Intake and Output 10/16/17 10/17/17 19:00 07:00 Intake Total 522.5 ml 137.5 ml Balance 522.5 ml 137.5 ml Intake Oral 440 ml IV Total 82.5 ml 137.5 ml # Voids 3 3 Laboratory Tests 10/17/17 05:10: White Blood Count 2.7#L, Red Blood Count 4.43, Hemoglobin 10.7L, Hematocrit 32.8L, Mean Corpuscular Volume 74L, Mean Corpuscular Hemoglobin 24.1L, Mean Corpuscular Hemoglobin Concent 32.6, Red Cell Distribution Width 14.5, Platelet Count 179, Mean Platelet Volume 7.0, Neutrophils (%) (Auto) , Lymphocytes (%) ( Auto) , Monocytes (%) (Auto) , Eosinophils (%) (Auto) , Basophils (%) (Auto) , Neutrophils % (Manual) [Pending], Lymphocytes % (Manual) [Pending], Platelet Estimate [Pending], Platelet Morphology [Pending], Sodium Level 134L, Potassium Level 2.7*L, Chloride Level 98, Carbon Dioxide Level 25, Anion Gap 11, Blood Urea Nitrogen 12, Creatinine 1.2, Estimat Glomerular Filtration Rate , Glucose Level 87, Calcium Level 8.6, Total Bilirubin 0.2, Aspartate Amino Transf (AST/ SGOT) 40H, Alanine Aminotransferase (ALT/SGPT) 20, Alkaline Phosphatase 69, Total Protein 6.8, Albumin 2.9L, Globulin 3.9, Albumin/Globulin Ratio 0.7L Height (Feet): 5 Height (Inches): 6.00 Weight (Pounds): 100 Objective GENERAL: Alert, awake, and oriented. HEENT: PERRLA. NECK: Range of motion is decreased due to the patient's condition. LUNGS: Decreased breath sounds bilaterally. HEART: S1 and S2 regular. ABDOMEN: Tenderness to palpation. BACK: Range of motion is decreased in flexion and extension with tenderness to paraspinous muscles, trapezius, or rhomboid muscles. EXTREMITIES: No clubbing. Sensory is intact. NEURO: No changes. Procedure: MRI T Spine wo/w Contrast Findings: Bone marrow signal and alignment are normal. There is no evidence of spondylodiscitis, epidural or other abnormal fluid collections or paravertebral/paraspinous soft tissue swelling or edema. Spinal cord appears normal. There is no compression of the cord or nerve roots. There is no canal or foraminal narrowing. There is incidental posterior vertebral body lesion at T10. This is likely a hemangioma. Trace basilar pleural effusions are incidentally noted. Aorta is ectatic. Biliary ducts within the liver appear prominent. ZEDNER,JEOVANNY N. P.A. Oct 17, 2017 08:50
[2017-10-17] MEDS: Heparin 5000 units/ml inj SUBQ SCH ×2 (09:50→21:00)
[2017-10-17 12:00] VITALS: BP 185/81
[2017-10-17] MEDS ORDERED: Ketorolac 30mg Inj IV PRN (13:00)
--- NOTE | 2017-10-17 13:36 | GI Progress Note ---
Assessment/Plan Problems: (1) Right flank pain ICD Codes: R10.9 - Unspecified abdominal pain SNOMED: 208247460 (2) Pancreatitis ICD Codes: K85.90 - Acute pancreatitis without necrosis or infection, unspecified SNOMED: 32551933 (3) Intractable abdominal pain ICD Codes: R10.9 - Unspecified abdominal pain SNOMED: 16540984, 416136937 (4) Back pain ICD Codes: M54.9 - Dorsalgia, unspecified SNOMED: 125706744 (5) History of cholecystectomy ICD Codes: Z98.890 - Other specified postprocedural states; Z90.49 - Acquired absence of other specified parts of digestive tract SNOMED: 62842786, 568657361 Status: unchanged Status Narrative Discussed with Dr. Escoto. Assessment/Plan Abdominal U/S reviewed >> - Surgically absent gallbladder - Ectatic extrahepatic bile ducts, likely related to age and postcholecystectomy state. - Incidental finding and lower pole renal cyst CT AP reviewed >> - No acute abnormality - Extrahepatic and central intrahepatic biliary ductal dilatation, probably related to prior cholecystectomy and senescent changes - Colonic diverticulosis. 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 MRI spine negative iron elevation folate deficiency ERCP refused by family members >> performed at [facility] in 2011 The patient was seen and examined at bedside and all new and available data was reviewed in the patients chart. I agree with the above findings, impression and plan. (Patient seen earlier today. Signature stamp does not reflect patient encounter time.). - Angelina Escoto MD symptomatic treatment pain mgmt OB stool r/o GI bleed monitor H&H, prn transfusions bowel regime folate ppi fu labs Subjective Subjective no abdominal pain right flank pain present Objective Last 24 Hour Vital Signs Date Time Temp Pulse Resp B/P (MAP) Pulse Ox O2 Delivery O2 Flow Rate FiO2 10/17/17 13:18 185/81 10/17/17 12:00 99.9 71 20 185/81 91 Room Air 99.9 10/17/17 09:48 169/79 10/17/17 08:00 97.3 67 18 136/69 94 97.3 10/17/17 04:00 98.6 59 20 169/79 96 98.6 10/17/17 00:09 161/70 10/17/17 00:00 97.5 53 18 161/70 96 97.5 18 21:44 131/69 10/16/17 20:00 97.6 60 20 131/69 94 97.6 10/16/17 16:40 159/78 10/16/17 16:15 97.7 53 18 159/78 96 Room Air 97.7 Intake and Output 10/16/17 10/17/17 19:00 07:00 Intake Total 522.5 ml 137.5 ml Balance 522.5 ml 137.5 ml Intake Oral 440 ml IV Total 82.5 ml 137.5 ml # Voids 3 3 Laboratory Tests Test 10/17/17 05:10 White Blood Count 2.7 K/UL (4.8-10.8) #L Red Blood Count 4.43 M/UL (4.20-5.40) Hemoglobin 10.7 G/DL (12.0-16.0) L Hematocrit 32.8 % (37.0-47.0) L Mean Corpuscular Volume 74 FL (80-99) L Mean Corpuscular Hemoglobin 24.1 PG (27.0-31.0) L Mean Corpuscular Hemoglobin Concent 32.6 G/DL (32.0-36.0) Red Cell Distribution Width 14.5 % (11.6-14.8) Platelet Count 179 K/UL (150-450) Mean Platelet Volume 7.0 FL (6.5-10.1) Neutrophils (%) (Auto) % (45.0-75.0) Lymphocytes (%) (Auto) % (20.0-45.0) Monocytes (%) (Auto) % (1.0-10.0) Eosinophils (%) (Auto) % (0.0-3.0) Basophils (%) (Auto) % (0.0-2.0) Differential Total Cells Counted 100 Neutrophils % (Manual) 40 % (45-75) L Lymphocytes % (Manual) 33 % (20-45) Monocytes % (Manual) 18 % (1-10) H Eosinophils % (Manual) 6 % (0-3) H Basophils % (Manual) 3 % (0-2) H Band Neutrophils 0 % (0-8) Platelet Estimate Adequate Platelet Morphology Normal Hypochromasia 1+ Anisocytosis 1+ Microcytosis 1+ Sodium Level 134 MMOL/L (136-145) L Potassium Level 2.7 MMOL/L (3.5-5.1) *L Chloride Level 98 MMOL/L (98-107) Carbon Dioxide Level 25 MMOL/L (21-32) Anion Gap 11 mmol/L (5-15) Blood Urea Nitrogen 12 mg/dL (7-18) Creatinine 1.2 MG/DL (0.55-1.30) Estimat Glomerular Filtration Rate mL/min (>60) Glucose Level 87 MG/DL (74-106) Calcium Level 8.6 MG/DL (8.5-10.1) Total Bilirubin 0.2 MG/DL (0.2-1.0) Aspartate Amino Transf (AST/SGOT) 40 U/L (15-37) H Alanine Aminotransferase (ALT/SGPT) 20 U/L (12-78) Alkaline Phosphatase 69 U/L (46-116) Total Protein 6.8 G/DL (6.4-8.2) Albumin 2.9 G/DL (3.4-5.0) L Globulin 3.9 g/dL Albumin/Globulin Ratio 0.7 (1.0-2.7) L Height (Feet): 5 Height (Inches): 6.00 Weight (Pounds): 100 General Appearance: alert, thin Cardiovascular: normal rate Respiratory/Chest: normal breath sounds, no respiratory distress Abdominal Exam: soft Odalys Tavarez N.PVenu Oct 17, 2017 13:36 TAL ESCOTO Oct 18, 2017 13:25
[2017-10-17] MEDS ORDERED: Piperacillin/Tazobactam 3.375 GM in NS 110 ML IVPB SCH (14:00)
[2017-10-17] MEDS ORDERED: GABAPENTIN100 MG ORAL (15:28)
[2017-10-17] MEDS ORDERED: TAMIFLU75 MG ORAL (15:28)
--- NOTE | 2017-10-17 15:31 | Pulmonology Progress Note ---
Assessment/Plan Problems: (1) Intractable abdominal pain (2) History of cholecystectomy (3) Pancreatitis Assessment/Plan fever is lower on tamilfu daughter wants to take the pt home all reviewed symptomatic treatment f/u GI recommendations dc home with home health. all notes and meds reviewed. Subjective ROS Limited/Unobtainable: No Constitutional: Reports: no symptoms HEENT: Repors: no symptoms Respiratory: Reports: no symptoms Cardiovascular: Reports: no symptoms Allergies: Coded Allergies: HYDROMORPHONE (Unverified Allergy, Unknown, vomitting, 10/11/17) LEVOFLOXACIN (Unverified Allergy, Unknown, Rash, 10/11/17) MEPERIDINE (Unverified Allergy, Unknown, nausea, 10/11/17) MORPHINE (Unverified Allergy, Unknown, nausea rash, 10/11/17) ACETAMINOPHEN (Verified Adverse Reaction, Intermediate, 10/14/17) abdominal irratation HYDROCODONE (Verified Adverse Reaction, Intermediate, 10/14/17) abdominal irratation Objective Last 24 Hour Vital Signs Date Time Temp Pulse Resp B/P (MAP) Pulse Ox O2 Delivery O2 Flow Rate FiO2 10/17/17 13:18 185/81 10/17/17 12:00 99.9 71 20 185/81 91 Room Air 99.9 10/17/17 09:48 169/79 10/17/17 08:00 97.3 67 18 136/69 94 97.3 10/17/17 04:00 98.6 59 20 169/79 96 98.6 10/17/17 00:09 161/70 10/17/17 00:00 97.5 53 18 161/70 96 97.5 10/16/17 21:44 131/69 10/16/17 20:00 97.6 60 20 131/69 94 97.6 10/16/17 16:40 159/78 10/16/17 16:15 97.7 53 18 159/78 96 Room Air 97.7 Intake and Output 10/16/17 10/17/17 19:00 07:00 Intake Total 522.5 ml 137.5 ml Balance 522.5 ml 137.5 ml Intake Oral 440 ml IV Total 82.5 ml 137.5 ml # Voids 3 3 Objective General Appearance: WD/WN HEENT: normocephalic, atraumatic Respiratory/Chest: chest wall non-tender, lungs clear, normal breath sounds Cardiovascular: normal peripheral pulses, normal rate Abdomen: normal bowel sounds, no organomegaly Genitourinary: normal external genitalia Extremities: no cyanosis Skin: no rash 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 Microbiology Date/Time Source Procedure Growth Status 10/15/17 11:40 Blood Blood Culture - Preliminary NO GROWTH AFTER 24 HOURS Resulted 10/15/17 11:05 Urine,Clean Catch Urine Culture - Final Mixed Gram Positive Organism Complete Laboratory Tests 10/17/17 05:10: White Blood Count 2.7#L, Red Blood Count 4.43, Hemoglobin 10.7L, Hematocrit 32.8L, Mean Corpuscular Volume 74L, Mean Corpuscular Hemoglobin 24.1L, Mean Corpuscular Hemoglobin Concent 32.6, Red Cell Distribution Width 14.5, Platelet Count 179, Mean Platelet Volume 7.0, Neutrophils (%) (Auto) , Lymphocytes (%) ( Auto) , Monocytes (%) (Auto) , Eosinophils (%) (Auto) , Basophils (%) (Auto) , Differential Total Cells Counted 100, Neutrophils % (Manual) 40L, Lymphocytes % (Manual) 33, Monocytes % (Manual) 18H, Eosinophils % (Manual) 6H, Basophils % ( Manual) 3H, Band Neutrophils 0, Platelet Estimate Adequate, Platelet Morphology Normal, Hypochromasia 1+, Anisocytosis 1+, Microcytosis 1+, Sodium Level 134L, Potassium Level 2.7*L, Chloride Level 98, Carbon Dioxide Level 25, Anion Gap 11 , Blood Urea Nitrogen 12, Creatinine 1.2, Estimat Glomerular Filtration Rate , Glucose Level 87, Calcium Level 8.6, Total Bilirubin 0.2, Aspartate Amino Transf (AST/SGOT) 40H, Alanine Aminotransferase (ALT/SGPT) 20, Alkaline Phosphatase 69, Total Protein 6.8, Albumin 2.9L, Globulin 3.9, Albumin/Globulin Ratio 0.7L Current Medications Medications (Trade) Dose Ordered Sig/Matt Route PRN Reason Start Time Stop Time Status Last Admin Dose Admin Al Hydroxide/Mg Hydroxide (Mylanta II) 30 ml Q6H PRN ORAL dyspepsia 10/11/17 22:15 11/10/17 22:14 Aspirin (ASA) 325 mg Q6H PRN ORAL Fever/Headache/Mild Pain 10/15/17 09:00 11/14/17 08:59 10/16/17 08:38 Captopril (Capoten) 25 mg EVERY 8 HOURS ORAL 10/17/17 08:00 11/16/17 07:59 10/17/17 13:18 Clonidine HCl (Catapres Tab) 0.1 mg Q6H PRN ORAL For High Blood Pressure>160 10/12/17 07:00 11/11/17 06:59 10/15/17 04:49 Dextrose (Dextrose 50%) STAT PRN IV Hypoglycemia 10/11/17 22:15 11/10/17 22:14 Diphenhydramine HCl (Benadryl) 25 mg Q6H PRN ORAL Itching/Pruritis 10/11/17 22:15 11/10/17 22:14 Docusate Sodium (Colace) 100 mg THREE TIMES A DAY ORAL 10/17/17 18:00 11/16/17 17:59 Ferrous Sulfate (Feosol) 325 mg BID ORAL 10/15/17 18:00 11/14/17 17:59 10/17/17 09:48 Folic Acid (Folate) 1 mg DAILY ORAL 10/14/17 09:00 11/13/17 08:59 10/17/17 09:48 Gabapentin (Neurontin) 100 mg BEDTIME ORAL 10/14/17 21:00 11/13/17 20:59 10/16/17 21:27 Heparin Sodium (Porcine) (Heparin 5000 units/ml) 5,000 units EVERY 12 HOURS SUBQ 10/12/17 09:00 11/11/17 08:59 10/17/17 09:50 Ketorolac Tromethamine (Toradol 30mg) 15 mg Q6H PRN IV For Pain 10/17/17 13:00 10/22/17 12:59 Lidocaine (Lidoderm 5% PATCH) 1 patch DAILY TDERMAL 10/15/17 10:30 11/14/17 10:29 10/17/17 09:49 Lorazepam (Ativan 2mg/ml 1ml) 1 mg EVERY 4 HOURS PRN IV agitation 10/11/17 22:15 10/18/17 22:14 Methocarbamol (Robaxin) 500 mg Q8H PRN ORAL Muscle Spasm 10/14/17 19:45 11/13/17 19:44 Nitroglycerin (Ntg) 0.4 mg Q5M X 3 DOSES PRN SL Prn Chest Pain 10/11/17 22:15 11/10/17 22:14 Ondansetron HCl (Zofran) 4 mg Q6H PRN IVP Nausea & Vomiting 10/11/17 22:15 11/10/17 22:14 Oseltamivir Phosphate (Tamiflu) 30 mg QHS ORAL 10/15/17 19:15 10/20/17 19:14 10/16/17 21:28 Pantoprazole (Protonix) 40 mg ACBREAKFAST ORAL 10/16/17 06:30 11/14/17 08:59 10/17/17 05:36 Piperacillin Sod/ Tazobactam Sod 3.375 gm/Sodium Chloride 110 ml @ 27.5 mls/hr EVERY 8 HOURS IVPB 10/17/17 14:00 10/20/17 23:59 10/17/17 14:58 Polyethylene Glycol (Miralax) 17 gm BEDTIME ORAL 10/17/17 21:00 11/16/17 20:59 Polyethylene Glycol (Miralax) 17 gm HSPRN PRN ORAL Constipation 10/11/17 22:15 11/10/17 22:14 Potassium Chloride (K-Dur) 40 meq TID ORAL 10/17/17 09:15 11/16/17 09:14 10/17/17 13:18 Promethazine HCl (Phenergan) 25 mg EVERY 8 HOURS PRN IV refractory nausea 10/11/17 22:15 11/10/17 22:14 Temazepam (Restoril) 15 mg HSPRN PRN ORAL Insomnia 10/11/17 22:15 10/18/17 22:14 FUENTES FLORES Oct 17, 2017 15:31
[2017-10-17 15:48] VITALS: BP 156/85
[2017-10-17] MEDS ORDERED: Docusate 100mg cap ORAL SCH (18:00)
[2017-10-17] MEDS ORDERED: Miralax 17gm pkt ORAL SCH (21:00)
[2017-10-17] MEDS ORDERED: Tubing IV Secondary IV ONE (21:49)
[2017-10-17] MEDS ORDERED: NS 275ml ONE (21:49)
--- NOTE | 2017-10-18 09:58 | General Progress Note ---
Assessment/Plan Assessment/Plan 1. Anemia due to underlying chronic disease. -->Continue to closely monitor. --> Anemia workup completed. --> Iron elevated at 196, to discontinue iron supplement. --> TIBC 309, % sat 63, Vit B12 303, Folate 7.2, Ferritin 37. --> Transfuse if hgb <7 --. H/H stable, no blood required today. 2. Anemia due to underlying folic acid --> Folic acid 7.3. To begin on folic acid. 3. Fever and chills, unknown cause. 4. Imaging of the back completed, which did not show any evidence of malignancy. 5. Worsening progressive pain of the lower back. 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 --> S/P MRI t spine - no evidence of spondylodiscitis. --> On pain control. 6. Abdominal pain, likely secondary to recurrent pancreatitis. --> On pain control. 7. History of cholecystectomy. 8. Femoral artery mural thrombosis. Consider use of aspirin and vascular surgeon to follow for femoral artery mural thrombosis. --> Begin the patient on aspirin. Consider on mural thrombosis. 9. The patient has in the past declined ERCP. 10. Deep venous thrombosis prophylaxis with heparin and begin the patient on ferrous sulfate. Subjective Date patient seen: Oct 17, 2017 Constitutional: Denies: no symptoms, chills, diaphoresis, fever, malaise, weakness, other HEENT: Denies: no symptoms, eye pain, blurred vision, tearing, double vision, ear pain, ear discharge, nose pain, nose congestion, throat pain, throat swelling, mouth pain, mouth swelling, other Cardiovascular: Denies: no symptoms, chest pain, edema, irregular heart rate, lightheadedness, palpitations, syncope, other Respiratory: Denies: no symptoms, cough, orthopnea, shortness of breath, SOB with excertion, SOB at rest, sputum, stridor, wheezing, other Gastrointestinal/Abdominal: Denies: no symptoms, abdomen distended, abdominal pain, black stools, tarry stools, blood in stool, constipated, diarrhea, difficulty swallowing, nausea, poor appetite, poor fluid intake, rectal bleeding , vomiting, other Genitourinary: Denies: no symptoms, burning, discharge, frequency, flank pain, hematuria, incontinence, pain, urgency, other Neurologic/Psychiatric: Denies: no symptoms, anxiety, depressed, emotional problems, headache, numbness, paresthesia, pre-existing deficit, seizure, tingling, tremors, weakness, other Hematologic/Lymphatic: Reports: anemia Allergies: Coded Allergies: HYDROMORPHONE (Unverified Allergy, Unknown, vomitting, 10/11/17) LEVOFLOXACIN (Unverified Allergy, Unknown, Rash, 10/11/17) MEPERIDINE (Unverified Allergy, Unknown, nausea, 10/11/17) MORPHINE (Unverified Allergy, Unknown, nausea rash, 10/11/17) ACETAMINOPHEN (Verified Adverse Reaction, Intermediate, 10/14/17) abdominal irratation HYDROCODONE (Verified Adverse Reaction, Intermediate, 10/14/17) abdominal irratation Subjective Feeling better today. On pain management. H/H stable. Objective Last 24 Hour Vital Signs Date Time Temp Pulse Resp B/P (MAP) Pulse Ox O2 Delivery O2 Flow Rate FiO2 10/17/17 15:48 99.5 71 20 156/85 95 Room Air 99.5 10/17/17 13:18 185/81 10/17/17 12:00 99.9 71 20 185/81 91 Room Air 99.9 Intake and Output 10/17/17 10/18/17 19:00 07:00 Intake Total 322.5 ml Balance 322.5 ml Intake Oral 240 ml IV Total 82.5 ml # Voids 2 Labs Test 10/15/17 17:20 10/16/17 07:05 10/17/17 05:10 Urine Color Pale yellow Urine Appearance Clear Urine pH 6 (4.5-8.0) Urine Specific Crawford 1.010 (1.005-1.035) Urine Protein Negative (NEGATIVE) Urine Glucose (UA) Negative (NEGATIVE) Urine Ketones Negative (NEGATIVE) Urine Occult Blood 4+ (NEGATIVE) Urine Nitrite Negative (NEGATIVE) Urine Bilirubin Negative (NEGATIVE) Urine Urobilinogen Normal MG/DL (0.0-1.0) Urine Leukocyte Esterase Negative (NEGATIVE) Urine RBC 5-10 /HPF (0 - 2) Urine WBC 0-2 /HPF (0 - 2) Urine Squamous Epithelial Cells Occasional /LPF Urine Bacteria Occasional /HPF (NONE) Urine Total Protein 12.0 mg/dL (Not Estab.) Urine Dlhqu-6-Ujrygoqkv (%) (.) Urine Pcmar-9-Govcauzxn (%) (.) Urine Beta-Globulin (%) (.) Urine Gamma Globulin (%) (.) Ur Protein Electrophoresis M-Bernabe (.) Urine Protein Electrophoresis Intrp Comment (.) White Blood Count 5.6 K/UL (4.8-10.8) 2.7 K/UL (4.8-10.8) Red Blood Count 4.44 M/UL (4.20-5.40) 4.43 M/UL (4.20-5.40) Hemoglobin 10.6 G/DL (12.0-16.0) 10.7 G/DL (12.0-16.0) Hematocrit 33.0 % (37.0-47.0) 32.8 % (37.0-47.0) Mean Corpuscular Volume 74 FL (80-99) 74 FL (80-99) Mean Corpuscular Hemoglobin 23.8 PG (27.0-31.0) 24.1 PG (27.0-31.0) Mean Corpuscular Hemoglobin Concent 32.1 G/DL (32.0-36.0) 32.6 G/DL (32.0-36.0) Red Cell Distribution Width 14.4 % (11.6-14.8) 14.5 % (11.6-14.8) Platelet Count 186 K/UL (150-450) 179 K/UL (150-450) Mean Platelet Volume 6.1 FL (6.5-10.1) 7.0 FL (6.5-10.1) Neutrophils (%) (Auto) % (45.0-75.0) % (45.0-75.0) Lymphocytes (%) (Auto) % (20.0-45.0) % (20.0-45.0) Monocytes (%) (Auto) % (1.0-10.0) % (1.0-10.0) Eosinophils (%) (Auto) % (0.0-3.0) % (0.0-3.0) Basophils (%) (Auto) % (0.0-2.0) % (0.0-2.0) Differential Total Cells Counted 100 100 Neutrophils % (Manual) 86 % (45-75) 40 % (45-75) Lymphocytes % (Manual) 8 % (20-45) 33 % (20-45) Monocytes % (Manual) 6 % (1-10) 18 % (1-10) Eosinophils % (Manual) 0 % (0-3) 6 % (0-3) Basophils % (Manual) 0 % (0-2) 3 % (0-2) Band Neutrophils 0 % (0-8) 0 % (0-8) Platelet Estimate Adequate Adequate Platelet Morphology Normal Normal Hypochromasia 1+ 1+ Anisocytosis 1+ 1+ Microcytosis 1+ 1+ Erythrocyte Sedimentation Rate 34 MM/HR (0-42) Sodium Level 134 MMOL/L (136-145) 134 MMOL/L (136-145) Potassium Level 2.6 MMOL/L (3.5-5.1) 2.7 MMOL/L (3.5-5.1) Chloride Level 98 MMOL/L (98-107) 98 MMOL/L (98-107) Carbon Dioxide Level 25 MMOL/L (21-32) 25 MMOL/L (21-32) Anion Gap 10 mmol/L (5-15) 11 mmol/L (5-15) Blood Urea Nitrogen 12 mg/dL (7-18) 12 mg/dL (7-18) Creatinine 1.1 MG/DL (0.55-1.30) 1.2 MG/DL (0.55-1.30) Estimat Glomerular Filtration Rate mL/min (>60) mL/min (>60) Glucose Level 112 MG/DL (74-106) 87 MG/DL (74-106) Calcium Level 8.6 MG/DL (8.5-10.1) 8.6 MG/DL (8.5-10.1) Phosphorus Level 2.6 MG/DL (2.5-4.9) Magnesium Level 1.8 MG/DL (1.8-2.4) Total Bilirubin 0.2 MG/DL (0.2-1.0) 0.2 MG/DL (0.2-1.0) Aspartate Amino Transf (AST/SGOT) 45 U/L (15-37) 40 U/L (15-37) Alanine Aminotransferase (ALT/SGPT) 20 U/L (12-78) 20 U/L (12-78) Alkaline Phosphatase 78 U/L (46-116) 69 U/L (46-116) Troponin I 0.041 ng/mL (0.000-0.056) C-Reactive Protein, Quantitative 4.1 mg/dL (0.00-0.90) Total Protein 7.0 G/DL (6.4-8.2) 6.8 G/DL (6.4-8.2) Albumin 3.2 G/DL (3.4-5.0) 2.9 G/DL (3.4-5.0) Globulin 3.8 g/dL 3.9 g/dL Albumin/Globulin Ratio 0.8 (1.0-2.7) 0.7 (1.0-2.7) Height (Feet): 5 Height (Inches): 6.00 Weight (Pounds): 100 General Appearance: no apparent distress Cardiovascular: normal rate Respiratory/Chest: decreased breath sounds Abdomen: non tender, soft Edema: trace edema Skin: warm/dry Eris Barker Oct 18, 2017 09:58
--- NOTE | 2017-10-19 16:12 | Discharge Summary ---
Discharge Summary Hospital Course Date of Admission Oct 11, 2017 at 21:55 Date of Discharge Oct 17, 2017 at 21:50 Admitting Diagnosis intractable pain HPI Sina Soria is a 87 year old female who was admitted on Oct 11, 2017 at 21: 55 for Intractable Pain Hospital Course [id number] Discharge Discharge Disposition Patient was discharged to Home with Home Health([id number]) Discharge Diagnoses: Es Cardenas NP Oct 19, 2017 16:12
--- NOTE | 2017-10-20 07:00 | Discharge Summary 2 SIG ---
DATE OF ADMISSION: 10/11/2017 DATE OF DISCHARGE: 10/17/2017 CONSULTANTS: 1. Eris Barker M.D. 2. Eagle Escoto M.D. 3. Joshua Ellis M.D. 4. Everett Massey M.D. 5. Hugh Delarosa M.D. BRIEF HOSPITAL COURSE: The patient is an 87-year-old female with history of cholecystectomy and gallstone pancreatitis, who presented to ED complaining of two days of epigastric pain which radiated to the back and right upper quadrant. There was no associated nausea, vomiting, diarrhea, fever, or chills. Denied constipation or diarrhea. She had history of cholecystectomy. On evaluation at ED, LFTs, bilirubin, and alkaline phosphatase were normal. CAT scan of the abdomen and pelvis showed no acute abnormality with surgically absent gallbladder. There was no evidence of diverticulitis. MRI of the abdomen done showed common bile duct and common hepatic duct measuring 15 mm in diameter. Liver, pancreas, spleen, adrenal, kidneys were all unremarkable. There was no definite obstructing lesion seen. She was then admitted for evaluation of intractable abdominal pain, possible acute pancreatitis as lipase was 373 and amylase was 145. She was followed by Dr. Delarosa. There was no biliary obstruction noted on CT. The patient was offered ERCP, however, family refused. She was given symptomatic treatment. Abdominal ultrasound done showed ectatic extrahepatic bile ducts. Abdominal pain/right upper quadrant and epigastric pain was nonconsistent on examination, could elicit pain on the right lower ribs anteriorly resembling costochondritis initially, however, it had resolved. She was also complaining of back pain and pain when getting out of bed and during activity. Pain management was consulted. She was given Toradol every 6 hours and lidocaine patch. She spiked fever. She was given initially IV cefepime and was changed to Zosyn empirically pending culture results. Blood culture did not isolate any growth. Urine culture showed mixed gram-positive organisms. Influenza screen done was positive for influenza A. She was given Tamiflu. She eventually defervesced. She had thoracic spine MRI that showed no evidence of spondylodiscitis and chest x-ray showed no acute findings. She was then discharged home with home health. FINAL DIAGNOSES: 1. Intractable abdominal pain. 2. Acute pancreatitis, resolved. 3. Influenza A infection. 4. Prior cholecystectomy. 5. Anemia due to folic acid deficiency. 6. Anemia due to underlying disease. 7. Progressive lower back pain. 8. Femoral artery mural thrombosis, the patient on aspirin. DISPOSITION: The patient was discharged home with home health. DISCHARGE MEDICATIONS: Refer to medication list. DISCHARGE INSTRUCTIONS: Follow up with PCP in a week. Reina Waldron M.D. I have been assigned to dictate discharge summary on this account and I was not involved in the patient's management. Es Cardenas N.P. DR: Juju JOB#: [id number] CC: ALAN
== END 2017-10-17 21:50 | disposition home or self-care (01) | DRG 282 ==
LOC: EDBD 18:52 → EMR 21:44 → 4E 21:55 → EDBEDREQ 22:18 → 4E 10-12 20:24 → 3E 10-15 10:03 → 4E 10-15 22:37
DX: K85.90 Acute pancreatitis without necrosis or infection, unspecified (principal); I74.3 Embolism and thrombosis of arteries of the lower extremities; D52.9 Folate deficiency anemia, unspecified; D63.8 Anemia in other chronic diseases classified elsewhere; J10.89 Influenza due to other identified influenza virus with other manifestations; M47.894 Other spondylosis, thoracic region; Z90.49 Acquired absence of other specified parts of digestive tract; Z88.6 Allergy status to analgesic agent; Z88.1 Allergy status to other antibiotic agents; Z88.8 Allergy status to other drugs, medicaments and biological substances; M54.5 Low back pain
CPT/HCPCS: 36415; 71045; 72157; 74177; 74181; 76700; 80048; 80053; 81003; 82150; 82378; 82607; 82728; 82746; 83540; 83550; 83690; 83735; 84100; 84165; 84439; 84443; 84484; 85007; 85025; 85044; 85060; 85610; 85651; 85730; 86140; 86710; 87040; 87086; 93005; 99285; A9585; J2405; J8499